=== PATIENT | male | born 1945 | race Caucasian/White ===

== ENCOUNTER 2023-02-22 13:48 | Inpatient (IN) ==
--- NOTE | 2023-02-22 14:10 | Emergency Department Note ---
Impression & Plan Syncope and collapse, A-fib, Bradycardia, Elevated troponin ED Provider Note Provider: Rickey Cordero MD DATE OF SERVICE: 02/22/2023 CHIEF COMPLAINT: Syncope HISTORY OF PRESENT ILLNESS: Patient is a 77-year-old gentleman status post TAVR in November of this year at [facility]. Patient visiting for the football game today from [place]. While at the game began to experience some lightheadedness and then passed out. Next in the crowd and slumped over but did not suffer significant fall. Maybe unconscious for about a minute. Taken to first-aid and then brought here via ambulance for further care. Found to be significantly bradycardic. Patient and report patient has a history of TAVR as well as atrial fibrillation. He states compliance on medications includes metoprolol as well as spironolactone that was increased this past week in addition to IVIS inhibitor and Eliquis. Chronic leg swelling not changed. Denies any chest pain today. States last couple days has had a little bit of dyspnea on exertion. Denies abdominal symptoms or URI symptoms. No history of syncope in the past of significance reported. Again denies pain at this time. Discussion with them patient's not known to have significant bradycardia in the past or arrhythmias beyond A-fib. Patient did not eat yet today. Did take his morning medications this morning including his metoprolol as normal. PAST MEDICAL HISTORY: As noted above MEDICATIONS: Reviewed home medications with at bedside includes small amount of metoprolol SOCIAL HISTORY: , from [place] PHYSICAL EXAM: GENERAL: alert and oriented in no acute distress on stretcher Head: normocephalic and atraumatic EYES: No injection, discharge or icterus. NECK: Trachea midline. ENT: Mucous membranes pink and moist. LUNGS: Airway patent. No retractions. Breath sounds clear HEART: Irregular bradycardic and rhythm. No chest wall tenderness ABDOMEN: Soft and non-tender, without guarding or rebound. SKIN: Acyanotic, warm, dry, without rashes EXTREMITIES: Without tenderness with 1+ edema of the lower extremities with chronic stasis change. NEUROLOGICAL: No focal deficits. No aphasia. No facial droop or slurred speech. EK bpm atrial fibrillation with slow ventricular response. No acute ST segment elevation with some artifact in the lateral leads. Right bundle branch block is noted. CONTINUOUS CARDIAC MONITORING: was ordered and showed a heart rate of 20s-30s bpm in A-fib slow ventricular response Patient's laboratory studies and imaging reviewed. Differential includes Vasovagal event, dehydration, infection, hypoglycemia, electrolyte abnormalities, cardiac sources, intracerebral event, pulmonary embolism, seizure, toxicologic, neurologic, as well as other pathologies. IMPRESSION/MEDICAL DECISION MAKING: Anticoag with Eliquis and low suspicion for PE given this fact. States medication compliance. Denies chest pain. Syncopal episode enough to be significant bradycardic with a heart rate in the 30s. Appears to be A-fib with slow response. No change to his beta-armando but recent increase in spironolactone. Electrolytes thyroid function checked. Troponin sent but less likely to be ACS at this time. Doubt acute aortic valve failure or heart failure as he does not appear to be unstable or in shock. Did not fall and struck his head and doubt acute cranial bleed or CVA. Blood work without significant leukocytosis and borderline anemia. No severe electrolyte abnormalities noted with creatinine 1.4. No LFT abnormalities. Troponin returns somewhat elevated 113. Unclear of exact baseline. Negative COVID testing. TSH within normal limits. Lyme testing negative. Given some gentle IV fluid hydration. Discussed with case management and reached out to [facility] cardiology Dr. Rome he will evaluate the patient in the ER. Magnesium slightly low at 1.6 and ordered repletion. IV repletion ordered of this. 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 Plan to hold his metoprolol. Monitoring closely for any worsening bradycardia or hypotension or signs of decompensation. Patient currently anticoagulated with his Eliquis. DIAGNOSIS: Bradycardia, syncope and collapse, elevated troponin DISPOSITION: Hospitalist will evaluate Patient was agreeable with this plan. Critical Care I have personally spent 35 minutes of critical care time in the direct management of this patient. This includes bedside care, interpretation of diagnostic studies, and testing, discussion with consultants, patient, and family members, and other required patient management activities. These 35 minutes is in excess of all separately billable procedures. Past Med/Surg History Medical History Essential hypertension Dyslipidemia Type 2 diabetes mellitus Aortic stenosis A-fib Surgical History S/P TAVR (transcatheter aortic valve replacement) Social History Smoking Status: Former smoker Feels Safe at Home: Yes Allergies Allergies Allergy/AdvReac Type Severity Reaction Status Date / Time ciprofloxacin [From Cipro] AdvReac Severe GI Verified 02/22/23 16:14 UPSET/SEVERE DIARRHEA Home Meds Home Medications Medication Instructions Recorded Confirmed Lactobacil.acidophilus-Bifido.animalis 1 cap PO DAILY 02/22/23 02/22/23 5 billion cell sprinkle capsule (Probiotic) acetaminophen 500 mg tablet 1,000 mg PO DIRECTED PRN Pain 02/22/23 02/22/23 (Tylenol Extra Strength) amlodipine 5 mg-benazepril 20 mg 1 cap PO DAILY 02/22/23 02/22/23 capsule amoxicillin 500 mg capsule 2,000 mg PO DIRECTED PRN PRIOR 02/22/23 02/22/23 TO DENTAL PROCEDURES apixaban 5 mg tablet (Eliquis) 5 mg PO BID 02/22/23 02/22/23 ascorbic acid (vitamin C) 1,000 mg 1 g PO DAILY 02/22/23 02/22/23 tablet (Vitamin C) atorvastatin 40 mg tablet 40 mg PO DAILY 02/22/23 02/22/23 fuyrbyo-xnrxnjbjo-eiah 333 mg-133 1 tab PO DAILY 02/22/23 02/22/23 mg-5 mg tablet chlorthalidone 25 mg tablet 12.5 mg PO DAILY 02/22/23 02/22/23 mecobalamin-levomefolate 1 tab PO DAILY 02/22/23 02/22/23 calcium-pyridoxal phos 3 mg-35 mg-2 mg tablet metformin 500 mg tablet 1,000 mg PO BIDM 02/22/23 02/22/23 metoprolol succinate 25 mg 12.5 mg PO DAILY 02/22/23 02/22/23 tablet,extended release 24 hr potassium gluconate 595 mg (99 mg) 595 mg PO DAILY 02/22/23 02/22/23 tablet spironolactone 25 mg tablet 25 mg PO QAM 02/22/23 02/22/23 Results & Data (ED) Vital Signs Vital Signs - 24 hr 02/22/23 13:53 02/22/23 13:54 02/22/23 13:54 Temperature Temperature Source Pulse Rate 34 L 36 L Pulse Rate [Apical] Pulse Rate from SpO2 Sensor 36 L Pulse Rhythm Pulse Rhythm [Apical] Pulse Strength Pulse Strength [Apical] Respiratory Rate 12 Respiratory Effort / Characteristics Respiratory Depth Respiratory Pattern Blood Pressure 161/57 H Blood Pressure [Right Arm] Blood Pressure Mean 81 Blood Pressure Mean [Right Arm] Pulse Oximetry 97 Oxygen Delivery Method Sepsis Recent Fever Within 48 Hours Sepsis New/Unexplained Change in Mental Status Sepsis Action Taken by Nursing 02/22/23 13:54 02/22/23 14:00 02/22/23 14:04 Temperature 36.9 C Temperature Source Oral Pulse Rate 33 L 33 L 34 L Pulse Rate [Apical] Pulse Rate from SpO2 Sensor 35 L 33 L Pulse Rhythm Irregular Pulse Rhythm [Apical] Pulse Strength Normal Pulse Strength [Apical] Respiratory Rate 12 9 L 20 Respiratory Effort / Characteristics SOB on Exertion Respiratory Depth Normal Respiratory Pattern Regular Blood Pressure 161/57 H Blood Pressure [Right Arm] Blood Pressure Mean 91 Blood Pressure Mean [Right Arm] Pulse Oximetry 96 93 97 Oxygen Delivery Method Room Air Sepsis Recent Fever Within 48 Hours No Sepsis New/Unexplained Change in Mental Status No Sepsis Action Taken by Nursing No Action Required 02/22/23 14:10 02/22/23 14:19 02/22/23 14:19 Temperature Temperature Source Pulse Rate 35 L 33 L Pulse Rate [Apical] Pulse Rate from SpO2 Sensor 36 L 33 L Pulse Rhythm Pulse Rhythm [Apical] Pulse Strength Pulse Strength [Apical] Respiratory Rate 19 19 Respiratory Effort / Characteristics Respiratory Depth Respiratory Pattern Blood Pressure 157/71 H Blood Pressure [Right Arm] Blood Pressure Mean 114 Blood Pressure Mean [Right Arm] Pulse Oximetry 97 95 Oxygen Delivery Method Sepsis Recent Fever Within 48 Hours Sepsis New/Unexplained Change in Mental Status Sepsis Action Taken by Nursing 02/22/23 14:20 02/22/23 14:20 02/22/23 14:30 Temperature Temperature Source Pulse Rate 35 L 34 L Pulse Rate [Apical] 35 L Pulse Rate from SpO2 Sensor 36 L 36 L Pulse Rhythm Pulse Rhythm [Apical] Irregular Pulse Strength Pulse Strength [Apical] Normal Respiratory Rate 19 16 14 Respiratory Effort / Characteristics SOB on Exertion Respiratory Depth Normal Respiratory Pattern Regular Blood Pressure Blood Pressure [Right Arm] 157/71 H Blood Pressure Mean Blood Pressure Mean [Right Arm] 99 Pulse Oximetry 94 94 96 Oxygen Delivery Method Room Air Sepsis Recent Fever Within 48 Hours Sepsis New/Unexplained Change in Mental Status Sepsis Action Taken by Nursing 02/22/23 14:40 02/22/23 14:50 02/22/23 16:10 Temperature Temperature Source Pulse Rate 37 L 37 L Pulse Rate [Apical] 34 L Pulse Rate from SpO2 Sensor 39 L 36 L Pulse Rhythm Pulse Rhythm [Apical] Irregular Pulse Strength Pulse Strength [Apical] Normal Respiratory Rate 9 L 20 18 Respiratory Effort / Characteristics SOB on Exertion Respiratory Depth Normal Respiratory Pattern Blood Pressure Blood Pressure [Right Arm] 157/72 H Blood Pressure Mean Blood Pressure Mean [Right Arm] 100 Pulse Oximetry 96 96 Oxygen Delivery Method Sepsis Recent Fever Within 48 Hours Sepsis New/Unexplained Change in Mental Status Sepsis Action Taken by Nursing Laboratory Data 02/22/23 14:03 02/22/23 14:41 Lab Results 02/22/23 02/22/23 02/22/23 Range/Units 14:03 14:15 14:41 WBC 8.31 (4.8-10.8) K/ul RBC 4.21 L (4.70-6.10) M/uL Hgb 13.1 L (14.0-18.0) g/dl Hct 39.6 L (42.0-52.0) % MCV 94.1 (80.0-100.0) fL MCH 31.1 (25.0-34.0) pg MCHC 33.1 (32.0-36.0) g/dL RDW Std Deviation 55.4 H (36.4-46.3) fL RDW Coeff of Cassia 17.1 H (11.5-14.5) % Plt Count 170 (130-400) K/uL MPV 12.0 (9.4-12.4) fL Immature Gran % (Auto) 0.4 % Neut % (Auto) 81.2 % Lymph % (Auto) 11.8 % Callaway % (Auto) 6.1 % Eos % (Auto) 0.1 % Baso % (Auto) 0.4 % Neut # (Auto) 6.75 H (1.40-6.50) K/uL Lymph # (Auto) 0.98 L (1.20-3.40) K/uL Callaway # (Auto) 0.51 (0.11-0.59) K/uL Eos # (Auto) 0.01 (0.00-0.50) K/uL Baso # (Auto) 0.03 (0.00-0.20) K/uL Immature Gran # (Auto) 0.03 (0.01-0.20) K/uL PT Cancelled 13.1 H INR Cancelled 1.2 H APTT Cancelled 29.6 PTT Ratio Cancelled 1.0 Sodium Cancelled 139 Potassium Cancelled 4.4 Chloride Cancelled 108 H Carbon Dioxide Cancelled 20 L Anion Gap Cancelled 11 BUN Cancelled 42 H Creatinine Cancelled 1.40 Est Cr Clr Drug Dosing Cancelled 51.5 Est GFR ( Amer) Cancelled 56.6 Est GFR (Non-Af Amer) Cancelled 48.8 BUN/Creatinine Ratio Cancelled 30.0 H Glucose Cancelled 133 H POC Glucose 127 H (70-99) mg/dl Calcium Cancelled 9.8 Magnesium Cancelled 1.6 L Total Bilirubin Cancelled 0.8 AST Cancelled 19 ALT Cancelled 21 Alkaline Phosphatase Cancelled 58 Troponin I High Sens Cancelled 113.1 H* Total Protein Cancelled 7.8 Albumin Cancelled 4.2 Globulin Cancelled 3.6 Albumin/Globulin Ratio Cancelled 1.2 TSH Cancelled 3.057 Lyme Disease IgG Ab Cancelled Negative Lyme Disease IgM Ab Cancelled Negative Administered Medications Heparin Sodium/Dextrose (Heparin Sodium/Dextrose) 25,000 units in 500 mls @ 29 mls/hr IV .[id number] [facility]; Protocol Stop: 03/24/23 17:14 Last Admin: 02/22/23 17:37 Dose: 1,450 units/hr, 29 mls/hr Documented By: KASEY Co-signed By: KERRI Discontinued Medications Heparin Sodium/Dextrose (Heparin Iv Adult Wt-Based Standard *No* Bolus Protocol) 1 each IV ONE STA; Protocol Stop: 02/22/23 16:49 Last Admin: 02/22/23 17:38 Dose: Not Given Documented By: KAESY Magnesium Sulfate/Dextrose (Magnesium Sulfate / D5w) 1 gm in 100 mls @ 100 mls/hr IV Q1H [facility] Stop: 02/22/23 17:59 Last Infusion: 02/22/23 18:32 Dose: Infused Documented By: Admin: 02/22/23 17:26 Dose: 100 mls/hr Documented By: Infusion: 02/22/23 17:09 Dose: Infused Documented By: Admin: 02/22/23 16:05 Dose: 100 mls/hr Documented By: KASEY Sodium Chloride (Nss) 500 mls @ 999 mls/hr IV .Q31M ONE Stop: 02/22/23 17:59 Last Infusion: 02/22/23 18:27 Dose: Infused Documented By: Admin: 02/22/23 17:39 Dose: 999 mls/hr Documented By: KASEY Imaging Data Radiologist's Impression: Chest X-Ray 02/22/23 14:06 XR chest 1V portable CLINICAL HISTORY: Syncope. COMPARISON STUDY: No previous studies for comparison. FINDINGS: No pneumothorax or pleural effusion is present. There is moderate cardiomegaly. A prosthetic aortic valve is in place. There is pulmonary vascular congestion without overt pulmonary edema. No consolidation is identified. IMPRESSION: Cardiomegaly with pulmonary vascular congestion. ACT 112: Negative or not required by law. Electronically signed by: Juancarlos Mcgee M.D. 02/22/2023 2:[address] 02/22/23 16:24 CT OF THE HEAD WITHOUT CONTRAST CLINICAL HISTORY: LOC, on apixaban COMPARISON STUDY: No previous studies for comparison. CT DOSE: 625.8 mGy.cm TECHNIQUE: Helical axial images of the head were obtained without IV contrast. Automated exposure control was utilized for the study. A dose lowering technique was utilized adhering to the principles of ALARA. FINDINGS: No acute intracranial hemorrhage, midline shift or mass effect is present. The ventricular system is unremarkable. The basal cisterns are patent. No extra-axial collections are present. There are no findings to suggest acute dural sinus thrombosis or acute territorial infarct. No significant calvarial abnormalities are present. Visualized portions of the sinuses and mastoid air cells are clear. IMPRESSION: No acute intracranial findings. ACT 112: Negative or not required by law. Electronically signed by: Juancarlos Mcgee M.D. 02/22/2023 5:39 PM Discharge Plan Visit Data Chief Complaint: Bradycardia Stated Complaint: BRADYCARDIA, SYNCOPE ED Provider: Rickey Cordero Discharge Problem: Syncope and collapse, A-fib, Bradycardia, Elevated troponin Patient Disposition: Being Evaluated by Hospitalist Discharge Problem: A-fib Qualifiers: Atrial fibrillation type: persistent (not longstanding) Qualified Code(s): I 48.19 - Other persistent atrial fibrillation
[2023-02-22 14:30] LABS: Basophils # (auto) 0.03 K/uL (0.00-0.20); Basophils % (auto) 0.4 %; Eosinophils # (auto) 0.01 K/uL (0.00-0.50); Eosinophils % (auto) 0.1 %; Hematocrit (blood only) 39.6 % (42.0-52.0); Hemoglobin 13.1 g/dl (14.0-18.0); Immature Granulocytes # (auto) 0.03 K/uL (0.01-0.20); Immature Granulocytes % (auto) 0.4 %; Lymphocytes # (auto) 0.98 K/uL (1.20-3.40); Lymphocytes % (auto) 11.8 %; Mean Corpuscular Hemoglobin 31.1 pg (25.0-34.0); Mean Corpuscular Hgb Conc 33.1 g/dL (32.0-36.0); Mean Corpuscular Volume 94.1 fL (80.0-100.0); Monocytes # (auto) 0.51 K/uL (0.11-0.59); Monocytes % (auto) 6.1 %; Neutrophils # (auto) 6.75 K/uL (1.40-6.50); Neutrophils % (auto) 81.2 %; Platelet Count 170 K/uL (130-400); RDW Coefficient of Variation 17.1 % (11.5-14.5); RDW Standard Deviation 55.4 fL (36.4-46.3); Red Blood Count 4.21 M/uL (4.70-6.10); White Blood Count 8.31 K/ul (4.8-10.8)
--- NOTE | 2023-02-22 14:43 | XRay Report ---
XR chest 1V portable CLINICAL HISTORY: Syncope. COMPARISON STUDY: No previous studies for comparison. FINDINGS: No pneumothorax or pleural effusion is present. There is moderate cardiomegaly. A prostheti c aortic valve is in place. There is pulmonary vascular congestion without overt pulmonary edema. No consolidation is identified. IMPRESSION: Cardiomegaly with pulmonary vascular congestion. ACT 112: Negative or not required by law. Electronically signed by: Juancarlos Mcgee M.D. 02/22/2023 2:42 PM
[2023-02-22 15:09] LABS: Albumin Globulin Ratio 1.2 (0.9-2); Albumin Level 4.2 gm/dl (3.4-5.0); Bilirubin,Total 0.8 mg/dl (0.2-1.0); Calcium 9.8 mg/dl (8.6-10.3); Creatinine Clr Calc Pharmacy 51.5 ml/min; Est GFR (African American) 56.6 ml/min; Est GFR (Non-African American) 48.8 ml/min; Globulin 3.6 gm/dl (2.5-4.0); Potassium 4.4 mmol/L (3.5-5.1); Total Protein 7.8 gm/dl (6.0-8.3)
[2023-02-22 15:21] LABS: INR 1.2 (0.9-1.1); Partial Thromboplastin Time 29.6 Seconds (21.0-31.0); Prothrombin Time 13.1 Seconds (9.0-12.0)
[2023-02-22 15:23] LABS: Troponin I High Sensitivity 113.1 pg/ml (0-20)
[2023-02-22 15:25] LABS: Thyroid Stimulating Hormone 3.057 uIu/ml (0.300-4.500)
[2023-02-22 15:30] LABS: Lyme Ab IgG w/WB Rflx Negative (Negative); Lyme Ab IgM w/WB Rflx Negative (Negative)
[2023-02-22 15:46] LABS: Magnesium 1.6 mg/dl (1.7-2.4)
[2023-02-22] MEDS: MAGNESIUM SULFATE / D5W 1 GM/100 ML BAG IV SCH ×2 (16:05→17:26)
--- NOTE | 2023-02-22 16:27 | History & Physical Report ---
Date of Service February 22, 2023 Assessment & Plan (1) Syncope and collapse: Plan: 77 y/o male with 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 In the ED, found to be markedly bradycardic with rate in the 20s-30s. Pt was found to be hypomag with a Mg of 1.6, which was subsequently replaced. He is on a low- dose beta-armando. Denies any prior syncopal events or bradycardic episodes. Syncopal event like related to bradycardia and/or significant pause. - Admit to PCU, closely monitor overnight - Consult cardiology - input appreciated. Case discussed with Dr. Rome. Pt may need pacemaker placement during admission if rate does not improve with holding beta-armando, Mg repletion - Hold Eliquis in case procedure needed urgently - will start heparin gtt for no w - Check ECHO - Repeat labs in the AM - CBC, BMP, Mg - Repeat troponin pending - EKG in AM - Holding blood pressure meds for now - re-evaluate in the AM (2) Bradycardia: (3) Elevated troponin: (4) A-fib: (5) Type 2 diabetes mellitus: Plan: Diabetic diet Insulin sliding scale, BSG ACHS A1c in AM (6) Dyslipidemia: (7) Essential hypertension: Plan Pt seen and reviewed with collaborating physician, Dr. Martell. Plan of care discussed and as outlined above. Code status: Full code DVT Prophylaxis: heparin gtt Dorina Dumont PA-C History of Present Illness Chief Complaint: Syncope Primary Care Provider: ALEJANDRO ROMAN This is 77 y/o male with 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 Pt is here visiting from [place], [place] for the football game. This morning he felt at baseline when he woke up, took his home meds as usual but didn't eat breakfast. On his way into the game, he became mildly short of breath with the exertion, which is unusual for him. While at the game, he became light-headed and slumped over onto the person in front of him. Family states that he was out for at least a full minute, appear pale and cyanotic but maintained pulse and blood pressure. He spontaneously regainied consciousness and was taken to the first-aid station then transported to the ED. In the ED, he was found to be bradycardic - rate in the ED has ranged from the 20s-30s. At baseline, pt takes metoprolol 12.5 mg daily, but this is not new for him - denies prior history of bradycardia or similar syncopal episodes. Reports his diabetes is usually well-controlled on the Metformin but he does not check his blood sugars at home. His routine A1cs have all been acceptable per pt. Denies chest pain, palpitations, N/V. Prior history of issues with peripheral edema but this has improved. Allergies Allergy/AdvReac Type Severity Reaction Status Date / Time ciprofloxacin [From Cipro] AdvReac Severe GI Verified 02/22/23 16:14 UPSET/SEVERE DIARRHEA Home Medications Medication Instructions Recorded Confirmed Type Lactobacil.acidophilus-Bifido.animalis 1 cap PO DAILY 02/22/23 02/22/23 History 5 billion cell sprinkle capsule (Probiotic) acetaminophen 500 mg tablet 1,000 mg PO DIRECTED PRN Pain 02/22/23 02/22/23 History (Tylenol Extra Strength) amlodipine 5 mg-benazepril 20 mg 1 cap PO DAILY 02/22/23 02/22/23 History capsule amoxicillin 500 mg capsule 2,000 mg PO DIRECTED PRN PRIOR 02/22/23 02/22/23 History TO DENTAL PROCEDURES apixaban 5 mg tablet (Eliquis) 5 mg PO BID 02/22/23 02/22/23 History ascorbic acid (vitamin C) 1,000 mg 1 g PO DAILY 02/22/23 02/22/23 History tablet (Vitamin C) atorvastatin 40 mg tablet 40 mg PO DAILY 02/22/23 02/22/23 History kcibewt-keolfzils-govh 333 mg-133 1 tab PO DAILY 02/22/23 02/22/23 History mg-5 mg tablet chlorthalidone 25 mg tablet 12.5 mg PO DAILY 02/22/23 02/22/23 History mecobalamin-levomefolate 1 tab PO DAILY 02/22/23 02/22/23 History calcium-pyridoxal phos 3 mg-35 mg-2 mg tablet metformin 500 mg tablet 1,000 mg PO BIDM 02/22/23 02/22/23 History metoprolol succinate 25 mg 12.5 mg PO DAILY 02/22/23 02/22/23 History tablet,extended release 24 hr potassium gluconate 595 mg (99 mg) 595 mg PO DAILY 02/22/23 02/22/23 History tablet spironolactone 25 mg tablet 25 mg PO QAM 02/22/23 02/22/23 History Past Med/Surg History Medical History Essential hypertension Dyslipidemia Type 2 diabetes mellitus Aortic stenosis A-fib Surgical History S/P TAVR (transcatheter aortic valve replacement) Social History Smoking Status: Former smoker Feels Safe at Home: Yes Review of Systems Review of Systems: All systems reviewed & are unremarkable except as noted in HPI & below Constitutional: no fever and no chills Eyes: no diplopia Respiratory: no cough and no wheezing Cardiovascular: + lightheadedness and + syncope; no ches t pain and no palpitations Gastrointestinal: no abdominal pain, no nausea and no vomiting Musculoskeletal: no back pain and no neck pain Integumentary: chronic stasis changes in bilateral LE Neurologic: chronic peripheral neuropathy in feet Physical Exam Physical Exam: General: awake, alert, NAD Eyes: no scleral icterus Mouth: moist mucus membranes Neck: trachea midline Heart: bradycardic, irregularly irregular, no murmurs Lungs: CTA bilaterally Abdomen: soft, +BS Extremities: chronic stasis changes bilateral LE, no edema Neuro: moves all extremities, O x 3, no dysarthria or facial droop Results & Data Results & Data Vital Signs (Past 12 Hours) Vital Signs Temp Pulse Pulse Resp BP BP Pulse Ox 02/22/23 16:10 34 L 18 157/72 H 02/22/23 14:50 37 L 20 96 02/22/23 14:40 37 L 9 L 96 02/22/23 14:30 34 L 14 96 02/22/23 14:20 35 L 16 94 02/22/23 14:20 35 L 19 157/71 H 94 02/22/23 14:19 33 L 19 95 02/22/23 14:19 157/71 H 02/22/23 14:10 35 L 19 97 02/22/23 14:04 36.9 C 34 L 20 161/57 H 97 02/22/23 14:00 33 L 9 L 93 02/22/23 13:54 33 L 12 96 02/22/23 13:54 161/57 H 02/22/23 13:54 36 L 02/22/23 13:53 34 L 12 97 O2 Del Method 02/22/23 16:10 02/22/23 14:50 02/22/23 14:40 02/22/23 14:30 02/22/23 14:20 02/22/23 14:20 Room Air 02/22/23 14:19 02/22/23 14:19 02/22/23 14:10 02/22/23 14:04 Room Air 02/22/23 14:00 02/22/23 13:54 02/22/23 13:54 02/22/23 13:54 02/22/23 13:53 Laboratory Results Laboratory Results - last 24 hr 02/22/23 02/22/23 02/22/23 14:03 14:15 14:41 WBC 8.31 RBC 4.21 L Hgb 13.1 L Hct 39.6 L MCV 94.1 MCH 31.1 MCHC 33.1 RDW Std Deviation 55.4 H RDW Coeff of Cassia 17.1 H Plt Count 170 MPV 12.0 Immature Gran % (Auto) 0.4 Neut % (Auto) 81.2 Lymph % (Auto) 11.8 [place] % (Auto) 6.1 Eos % (Auto) 0.1 Baso % (Auto) 0.4 Neut # (Auto) 6.75 H Lymph # (Auto) 0.98 L [place] # (Auto) 0.51 Eos # (Auto) 0.01 Baso # (Auto) 0.03 Immature Gran # (Auto) 0.03 PT Cancelled 13.1 H INR Cancelled 1.2 H APTT Cancelled 29.6 PTT Ratio Cancelled 1.0 Sodium Cancelled 139 Potassium Cancelled 4.4 Chloride Cancelled 108 H Carbon Dioxide Cancelled 20 L Anion Gap Cancelled 11 BUN Cancelled 42 H Creatinine Cancelled 1.40 Est Cr Clr Drug Dosing Cancelled 51.5 Est GFR ( Amer) Cancelled 56.6 Est GFR (Non-Af Amer) Cancelled 48.8 BUN/Creatinine Ratio Cancelled 30.0 H Glucose Cancelled 133 H POC Glucose 127 H Calcium Cancelled 9.8 Magnesium Cancelled 1.6 L Total Bilirubin Cancelled 0.8 AST Cancelled 19 ALT Cancelled 21 Alkaline Phosphatase Cancelled 58 Troponin I High Sens Cancelled 113.1 H* Total Protein Cancelled 7.8 Albumin Cancelled 4.2 Globulin Cancelled 3.6 Albumin/Globulin Ratio Cancelled 1.2 TSH Cancelled 3.057 Lyme Disease IgG Ab Cancelled Negative Lyme Disease IgM Ab Cancelled Negative SARS-CoV-2, RNA, NAAT 02/22/23 Unknown WBC RBC Hgb Hct MCV MCH MCHC RDW Std Deviation RDW Coeff of Cassia Plt Count MPV Immature Gran % (Auto) Neut % (Auto) Lymph % (Auto) [place] % (Auto) Eos % (Auto) Baso % (Auto) Neut # (Auto) Lymph # (Auto) [place] # (Auto) Eos # (Auto) Baso # (Auto) Immature Gran # (Auto) PT INR APTT PTT Ratio Sodium Potassium Chloride Carbon Dioxide Anion Gap BUN Creatinine Est Cr Clr Drug Dosing Est GFR ( Amer) Est GFR (Non-Af Amer) BUN/Creatinine Ratio Glucose POC Glucose Calcium Magnesium Total Bilirubin AST ALT Alkaline Phosphatase Troponin I High Sens Total Protein Albumin Globulin Albumin/Globulin Ratio TSH Lyme Disease IgG Ab Lyme Disease IgM Ab SARS-CoV-2, RNA, NAAT NEGATIVE Diagnostic Findings Chest X-Ray 02/22/23 14:06 XR chest 1V portable CLINICAL HISTORY: Syncope. COMPARISON STUDY: No previous studies for comparison. FINDINGS: No pneumothorax or pleural effusion is present. There is moderate cardiomegaly. A prosthetic aortic valve is in place. There is pulmonary vascular congestion without overt pulmonary edema. No consolidation is identified. IMPRESSION: Cardiomegaly with pulmonary vascular congestion. ACT 112: Negative or not required by law. Electronically signed by: Juancarlos Mcgee M.D. 02/22/2023 2:42 PM Medications Administered Magnesium Sulfate/Dextrose (Magnesium Sulfate / D5w) 1 gm in 100 mls @ 100 mls/hr IV Q1H MARY Stop: 02/22/23 17:59 Last Admin: 02/22/23 16:05 Dose: 100 mls/hr Documented By: GGG Supervising Physician Co-Signing Physician Notes I have seen and examined the patient and have discussed the case with the provider above. I agree with the assessment and plan as stated. 77 yo M on metoprolol succinate presented with syncope likely 2/2 symptomatic bradycardia while at a football game. He is on apixaban and reportedly did not hit his head or fall but instead slumped onto the person next to him. LOC lasted approximately for 1 minute per family who witnessed the event. The patient currently has a heart rate in the 30s with EKG revealing afib. Recent TAVR in November. On exam, he is WNWD and in NAD. He is mentating clearly and is alert saying "I feel great!" Cardiac exam reveals S1/2 heard without murmurs, gallops or rubs. Luc rate and regular rhythm heard with 2+ radial pulse bilaterally. Extremities are warm and well perfused. He has venous stasis changes in his legs bilaterally wtih a dark purple hue to distal lower extremities. Lungs are CTA throughout. Normal respiratory effort. Abdomen soft, NTND. Labs/meds/imaging reviewed. Elevated troponin of 113 to 130. No evidence clinically or on objective testing that ACS was present. Echo ordered for am. Apixaban was converted to heparin in case of need for procedure. He was transferred to PCU for continuous telemetry monitoring overnight. Dr. Rome will be in contact with his primary skylights assembler as needed. For now, cont holding BB and monitor clinical response. Also, pt is a dibateic and was advised on the use of insulin in lieu of metformin while in the hospital. He verbalized understanding. A1C in am. DO Jasbir (4) A-fib Atrial fibrillation type: persistent (not longstanding) Qualified Code(s): I48.19 - Other persistent atrial fibrillation (5) Type 2 diabetes mellitus Diabetes mellitus complication detail: with unspecified neuropathy Diabetes mellitus complication status: with neurologic complications Diabetes mellitus terminal gauger insulin use: without terminal gauger use Qualified Code(s): E11.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
[2023-02-22] MEDS ORDERED: Heparin IV Adult Wt-Based Standard *NO* Bolus Protocol IV STA (16:48)
--- NOTE | 2023-02-22 17:07 | Cardiology Consultation ---
Date of Consultation February 22, 2023 Assessment & Plan (1) Syncope and collapse: (2) Bradycardia: (3) A-fib: Plan -Patient describes a longstanding history of persistent atrial fibrillation. Home medications include metoprolol succinate 12.5 mg daily and Eliquis 5 mg twice daily. This is his first syncopal episode. He denies any preceding recent symptoms to suggest angina. -He has a history of TAVR that took place in November, and reportedly coronary angiography that was performed in advance of this procedure revealed no obstructive CAD and has no history of coronary stents. -I have counseled the patient that his metoprolol is going to be held as well as his other antihypertensives, chlorthalidone, amlodipine, benazepril. -I have concerns that given his presenting heart rate that has been persistently in the 30s, and atrial fibrillation for the last 4 hours, that even after the metoprolol washes out he still may need to have a permanent pacemaker. -A transthoracic echocardiogram has been requested and will be performed tomorrow. -In anticipation of possible pacemaker, his Eliquis, the next dose of which would be due at 1800 this evening as per his usual home schedule is going to be held with plans to proceed with a heparin bridge (adult weight-based protocol without bolus). -The patient is hemodynamically stable, and I do not think he needs a temporary transvenous pacemaker at present. Case discussed with Dr Cordero of emergency medicine by telephone and with Rafa Dumont PA-C who is seeing the patient along with Dr Martell for the admitting hospitalist service. Patient to be admitted to the telemetry unit. The patient's primary hull molder is Dr. Izabel Vasquez. Dr Cordero has already spoken to him on the phone earlier today. I counseled the patient that I would be happy to update him as the hospital stay develops. History of Present Illness History of Present Illness Jose Angel Fitzgerald is a 77-year-old male seen in cardiology consultation per the request of Dr Cordero for the evaluation of the syncope and bradycardia. The patient is assessed in the emergency room, [address] He is accompanied by his spouse, Radha. The patient resides in [place], [place] and was in town for the football game today. He took his medications as per his usual routine this morning and did not eat breakfast and states he did not have much to drink. He was sitting in the stadium and was witnessed to have a collapse event with uri loss of consciousness and loss of postural tone that lasted about a minute. A family friend that accompanies him is an anesthesiologist and states that his appearance was poor and she was concerned at first that he had suffered a cardiac arrest, then he spontaneously regained consciousness. He was pale when he was taken to the EMS center within the stadium. Subsequently he was transferred to the emergency department. Since his initial vital signs were taken 4 hours ago, he has been noted to have atrial fibrillation with slow ventricular response in the 30s. During my interview with him, he had a brief heart rate that was as high as 40 bpm. He is feeling well at the time of my assessment and his most recent blood pressure reading was 157/72. He feels fine at present with no complaints. Past Medical History: History of transcatheter aortic valve implantation which took place at the [facility] in November, Hypertension Dyslipidemia Persistent atrial fibrillation Social History: , lives with spouse who is at the bedside Allergies Allergy/AdvReac Type Severity Reaction Status Date / Time ciprofloxacin [From Cipro] AdvReac Severe GI Verified 02/22/23 16:14 UPSET/SEVERE DIARRHEA Home Medications Medication Instructions Recorded Confirmed Type Lactobacil.acidophilus-Bifido.animalis 1 cap PO DAILY 02/22/23 02/22/23 History 5 billion cell sprinkle capsule (Probiotic) acetaminophen 500 mg tablet 1,000 mg PO DIRECTED PRN Pain 02/22/23 02/22/23 History (Tylenol Extra Strength) amlodipine 5 mg-benazepril 20 mg 1 cap PO DAILY 02/22/23 02/22/23 History capsule amoxicillin 500 mg capsule 2,000 mg PO DIRECTED PRN PRIOR 02/22/23 02/22/23 History TO DENTAL PROCEDURES apixaban 5 mg tablet (Eliquis) 5 mg PO BID 02/22/23 02/22/23 History ascorbic acid (vitamin C) 1,000 mg 1 g PO DAILY 02/22/23 02/22/23 History tablet (Vitamin C) atorvastatin 40 mg tablet 40 mg PO DAILY 02/22/23 02/22/23 History uwuafae-bmjnqwcbr-hskf 333 mg-133 1 tab PO DAILY 02/22/23 02/22/23 History mg-5 mg tablet chlorthalidone 25 mg tablet 12.5 mg PO DAILY 02/22/23 02/22/23 History mecobalamin-levomefolate 1 tab PO DAILY 02/22/23 02/22/23 History calcium-pyridoxal phos 3 mg-35 mg-2 mg tablet metformin 500 mg tablet 1,000 mg PO BIDM 02/22/23 02/22/23 History metoprolol succinate 25 mg 12.5 mg PO DAILY 02/22/23 02/22/23 History tablet,extended release 24 hr potassium gluconate 595 mg (99 mg) 595 mg PO DAILY 02/22/23 02/22/23 History tablet spironolactone 25 mg tablet 25 mg PO QAM 02/22/23 02/22/23 History Patient History Medical History Essential hypertension Dyslipidemia Type 2 diabetes mellitus Aortic stenosis A-fib Surgical History S/P TAVR (transcatheter aortic valve replacement) Social History Smoking Status: Former smoker Feels Safe at Home: Yes Review of Systems Review of Systems: All systems reviewed & are unremarkable except as noted in HPI & below Physical Exam Constitutional: WD/WN, vitals as above Eyes: PERRL, conjunctivae normal, anicteric sclerae Respiratory: normal respiratory effort, lungs clear to auscultation Cardiovascular: Rate/Rhythm: + bradycardic and + irregularly irregular Heart Sounds: no murmur Vessels: no JVD Extremities: no edema (Chronic lower extremity venous stasis changes noted) Gastrointestinal (Abdomen): normal bowel sounds, soft, nontender, no hepatosplenomegaly Neurologic: PERRL, EOMI, accommodation nl, no face palsy, no dysarthria Results & Data Vital Signs (Past 12 Hours) Vital Signs Temp Pulse Pulse Resp BP BP Pulse Ox 02/22/23 16:10 34 L 18 157/72 H 02/22/23 14:50 37 L 20 96 02/22/23 14:40 37 L 9 L 96 02/22/23 14:30 34 L 14 96 02/22/23 14:20 35 L 16 94 02/22/23 14:20 35 L 19 157/71 H 94 02/22/23 14:19 33 L 19 95 02/22/23 14:19 157/71 H 02/22/23 14:10 35 L 19 97 02/22/23 14:04 36.9 C 34 L 20 161/57 H 97 02/22/23 14:00 33 L 9 L 93 02/22/23 13:54 33 L 12 96 02/22/23 13:54 161/57 H 02/22/23 13:54 36 L 02/22/23 13:53 34 L 12 97 O2 Del Method 02/22/23 16:10 02/22/23 14:50 02/22/23 14:40 02/22/23 14:30 02/22/23 14:20 02/22/23 14:20 Room Air 02/22/23 14:19 02/22/23 14:19 02/22/23 14:10 02/22/23 14:04 Room Air 02/22/23 14:00 02/22/23 13:54 02/22/23 13:54 02/22/23 13:54 02/22/23 13:53 Laboratory Results Cardiac Enzymes 02/22/23 02/22/23 Range/Units 14:03 14:41 AST Cancelled 19 Troponin I High Sens Cancelled 113.1 H* Coagulation 02/22/23 02/22/23 Range/Units 14:03 14:41 PT Cancelled 13.1 H APTT Cancelled 29.6 CBC 02/22/23 Range/Units 14:03 WBC 8.31 (4.8-10.8) K/ul RBC 4.21 L (4.70-6.10) M/uL Hgb 13.1 L (14.0-18.0) g/dl Hct 39.6 L (42.0-52.0) % Plt Count 170 (130-400) K/uL Neut # (Auto) 6.75 H (1.40-6.50) K/uL Lymph # (Auto) 0.98 L (1.20-3.40) K/uL [place] # (Auto) 0.51 (0.11-0.59) K/uL Eos # (Auto) 0.01 (0.00-0.50) K/uL Baso # (Auto) 0.03 (0.00-0.20) K/uL Comprehensive Metabolic Panel 02/22/23 02/22/23 Range/Units 14:03 14:41 Sodium Cancelled 139 Potassium Cancelled 4.4 Chloride Cancelled 108 H Carbon Dioxide Cancelled 20 L BUN Cancelled 42 H Creatinine Cancelled 1.40 Glucose Cancelled 133 H Calcium Cancelled 9.8 AST Cancelled 19 ALT Cancelled 21 Alkaline Phosphatase Cancelled 58 Total Protein Cancelled 7.8 Albumin Cancelled 4.2 Intake and Output 02/22/23 02/22/23 02/22/23 06:59 14:59 22:59 Other: Weight 90 kg Weight Measurement Method Built in [facility] Patient Weight 02/23/23 06:59 Weight 90 kg Magnesium level 1.6 mg/dL Diagnostic Findings EKG performed on presentation at 1400 revealed idioventricular rhythm at 35 bpm T wave inversion noted in leads I and aVL (3) A-fib Atrial fibrillation type: persistent (not longstanding) Qualified Code(s): I48.19 - Other persistent atrial fibrillation
[2023-02-22] MEDS ORDERED: SODIUM CHLORIDE 0.9% 500 ML IV ONE (17:29)
[2023-02-22] MEDS: HEPARIN SODIUM/DEXTROSE 25,000 UNITS/500 ML BAG IV SCH (17:37)
--- NOTE | 2023-02-22 17:40 | CT Scan Report ---
CT OF THE HEAD WITHOUT CONTRAST CLINICAL HISTORY: LOC, on apixaban COMPARISON STUDY: No previous studies for comparison. CT DOSE: 625.8 mGy.cm TECHNIQUE: Helical axial images of the head were obtained without IV contrast. Automated exposure con trol was utilized for the study. A dose lowering technique was utilized adhering to the principles o f ALARA. FINDINGS: No acute intracranial hemorrhage, midline shift or mass effect is present. The ventricular system is unremarkable. The basal cisterns are patent. No extra-axial collections are present. There are no findings to suggest acute dural sinus thrombosis or acute territorial infarct. No significant calvarial abnormalities are present. Visualized portions of the sinuses and mastoid air cells are jer ar. IMPRESSION: No acute intracranial findings. ACT 112: Negative or not required by law. Electronically signed by: Juancarlos Mcgee M.D. 02/22/2023 5:39 PM
[2023-02-22] MEDS ORDERED: GLUCOSE 10 TAB/TUBE PO PRN (19:24)
[2023-02-22] MEDS ORDERED: CARBOHYDRATES FOR HYPOGLYCEMIA PO PRN (19:24)
[2023-02-22] MEDS ORDERED: GLUCAGON FOR INJ 1 MG VIAL SQ PRN (19:24)
[2023-02-22] MEDS ORDERED: DEXTROSE 50% 50 ML SYRINGE IV PRN (19:24)
[2023-02-22] MEDS ORDERED: GLUCOSE 40% GEL 15 GM TUBE PO PRN (19:24)
[2023-02-22] MEDS: INSULIN ASPART PER UNIT CHARGE SC SCH (20:55)
[2023-02-22] MEDS: LANTUS PER UNIT CHARGE SQ SCH (20:55)
[2023-02-23 00:36] LABS: Partial Thromboplastin Ratio 2.7
[2023-02-23 00:47] LABS: Partial Thromboplastin Time 75.9 Seconds (21.0-31.0)
[2023-02-23 08:01] LABS: Hematocrit (blood only) 35.6 % (42.0-52.0); Mean Corpuscular Hgb Conc 33.7 g/dL (32.0-36.0); Mean Platelet Volume 10.3 fL (9.4-12.4); Platelet Count 159 K/uL (130-400); RDW Coefficient of Variation 16.1 % (11.5-14.5); RDW Standard Deviation 53.6 fL (36.4-46.3); Red Blood Count 3.87 M/uL (4.70-6.10); White Blood Count 6.87 K/ul (4.8-10.8)
[2023-02-23] MEDS: ATORVASTATIN 40 MG TAB PO SCH (08:32)
[2023-02-23] MEDS: INSULIN ASPART PER UNIT CHARGE SC SCH ×4 (08:32→21:30)
[2023-02-23 08:33] LABS: Calcium 9.6 mg/dl (8.6-10.3); Magnesium 1.9 mg/dl (1.7-2.4); Potassium 4.1 mmol/L (3.5-5.1)
[2023-02-23 08:39] LABS: BUN Creatinine Ratio 25.2 (10-20); Creatinine Clr Calc Pharmacy 67.2 ml/min; Est GFR (African American) 74.9 ml/min; Est GFR (Non-African American) 64.6 ml/min
[2023-02-23 08:44] LABS: Partial Thromboplastin Ratio 3.3
[2023-02-23 08:46] LABS: Partial Thromboplastin Time 92.7 Seconds (21.0-31.0)
--- NOTE | 2023-02-23 09:55 | Cardiology Progress Note ---
Date of Service February 23, 2023 Assessment & Plan (1) Syncope and collapse: (2) Bradycardia: (3) A-fib: Plan -Patient hemodynamically stable, with systolic blood pressures persistently in the 150s. His antihypertensives are on hold including metoprolol succinate 12.5 mg daily, chlorthalidone, and amlodipine/benazepril. -I recommended patient remains in the hospital for permanent pacemaker implantation to tentatively be performed tomorrow, 02/24/2023. The taylor ent was initially hesitant as he had preferred to follow-up with his primary cardiology team in [place], but he was actually able to call his primary pharmaceutical detailer, Dr. Vasquez , on the phone and Dr. Vasquez provided the same advice that is I did that would be safest for the patient to remain in the hospital and have the procedure performed here. -Echocardiogram performed today reveals normal LV systolic function, ejection fraction in the range of 55 to 60%. The gradients across the aortic valve prosthesis are normal. Mild periprosthetic regurgitation present. The pulm artery systolic pressure is moderately elevated at 63 mmHg. I was able to review the report of the patient's post TAVR echocardiogram performed 12/12/2022 the portal application. The estimated pulmonary pressures at that time were in the mid 30s. Otherwise the measurements appear similar. I counseled the patient that I do not think this change in pulmonary pressures necessarily connected to his bradycardia but would need to be followed in the future. -The patient and spouse provide the history that he is in atrial fibrillation all the time. Therefore we will proceed with a single-chamber permanent pacemaker. We will make patient n.p.o. after midnight, with plans for device tomorrow. He is currently on a heparin bridge and heparin will be held at 4 AM with plans to resume Eliquis post procedure. Case discussed with Dr Posada of the hospitalist service for the purpose of coordination of care. Admission and Anticipated Discharge Date Admission Date: February 22, 2023 Subjective Patient seen in follow up. His spouse, Radha, is at the bedside. Patient feels well. No recurrent symptoms overnight. Atrial fibrillation and junctional rhythm with rates for the most part in the mid 30s present on telemetry overnight and thus far this am. Physical Exam Constitutional: WD/WN, vitals as above Eyes: PERRL, conjunctivae normal, anicteric sclerae Respiratory: normal respiratory effort, lungs clear to auscultation Cardiovascular: Rate/Rhythm: + bradycardic and + irregularly irregular Heart Sounds: no murmur Vessels: no JVD Extremities: no edema (Chronic lower extremity venous stasis changes noted) Gastrointestinal (Abdomen): normal bowel sounds, soft, nontender, no hepatosplenomegaly Neurologic: PERRL, EOMI, accommodation nl, no face palsy, no dysarthria Results & Data Vital Signs (Past 12 Hours) Vital Signs Temp Pulse Pulse Resp BP Pulse Ox O2 Del Method 02/23/23 08:51 36.4 C L 41 L 16 151/89 H 94 Room Air 02/23/23 08:00 33 L 02/23/23 04:11 34 L 02/23/23 03:00 36.5 C 38 L 16 148/92 H 98 Room Air 02/22/23 23:00 36.5 C 34 L 16 181/87 H 97 Room Air (3) A-fib Atrial fibrillation type: persistent (not longstanding) Qualified Code(s): I48.19 - Other persistent atrial fibrillation
[2023-02-23] MEDS: HEPARIN SODIUM/DEXTROSE 25,000 UNITS/500 ML BAG IV SCH ×2 (11:43→16:32)
--- NOTE | 2023-02-23 12:10 | Communication Note ---
Date of Service: February 23, 2023 SBP up to 180 mm Hg. Will resume ACEI. He takes benazepril at home which is not on formulary. Start lisinopril 10 mg for now. Resume spironolactone May need to add back amlodipine next. Hold metoprolol , chlorthalidone.
[2023-02-23] MEDS: SPIRONOLACTONE 25 MG TAB PO SCH (12:49)
[2023-02-23] MEDS: lisinopril 10 MG TAB PO SCH (12:50)
--- NOTE | 2023-02-23 14:15 | Hospitalist Progress Note ---
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 In the ED, found to be markedly bradycardic with rate in the 20s-30s. Pt was found to be hypomag with a Mg of 1.6, which was subsequently replaced. He is on a low- dose beta-armando. Denies any prior syncopal events or bradycardic episodes. Syncopal event like related to bradycardia and/or significant pause. - Admitted to PCU - Consult cardiology - input appreciated. Case discussed with Dr. Rome. Pt may need pacemaker placement during admission if rate does not improve with holding beta-armando, Mg repletion - Hold Eliquis in case procedure needed urgently - will start heparin gtt for now -Appreciate cardiology input and recommendation for permanent pacemaker placement tomorrow -His primary manufacturing planner Dr. Vasquez was communicated by Dr. Davis -Echo of the heart showed-normal LV systolic function, EF 55 to 60%, gradients at across the aortic valve prosthesis are normal, mild periprosthetic regurgitation, pulm artery systolic pressure is moderately elevated at 63 mmHg. -His heart rate is running around lower 40 without any symptoms at rest -Electrolytes replaced -Has been on heparin and plan to do pacemaker implantation tomorrow -Discussed with the family members (2) Bradycardia: Plan: As above (3) Elevated troponin: Plan: Mildly elevated troponin secondary to a strain Doubt any ACS (4) A-fib: Plan: History of A-fib on Eliquis Having bradycardia with symptoms He is 4 pacemaker placement likely tomorrow (5) Type 2 diabetes mellitus: Plan: Diabetic diet Insulin sliding scale, BSG ACHS A1c in AM-pending for now (6) Dyslipidemia: Plan: Continue statin (7) Essential hypertension: Plan Code status: Full code DVT Prophylaxis: heparin gtt Admission and Anticipated Discharge Date Admission Date: February 22, 2023 Subjective 02/23/2023 The patient was seen and examined in telemetry unit He does not have any symptoms but presented with syncope and collapse No chest pain or palpitation or shortness of breath at rest Heart rate remains around 40s Review of Systems Review of Systems: All systems reviewed and are unremarkable except as noted below Physical Exam Physical Exam: Sitting at the edge of the bed without any acute distress Constitutional: well developed, well nourished and + obese; not ill appearing Eyes: PERRL, conjunctivae normal, anicteric sclerae ENMT: external ear and nose normal, oropharynx normal Neck: trachea midline, no thyromegaly Respiratory: no respiratory distress Auscultation: + diminished lung sounds and + crackles (Minimal crackles at the bases) Cardiovascular: Rate/Rhythm: regular rate, regular rhythm and + bradycardic Heart Sounds: normal S1 and normal S2; no murmur Extremities: + edema (Trace edema bilaterally) Gastrointestinal (Abdomen): Inspection/Auscultation: normal bowel sounds; abdomen not distended Percussion/Palpation: abdomen soft; abdomen nontender Musculoskeletal: No acute arthritis involving any of the joint Neurologic: normal touch/pain/proprioception and moves all extremities; not confused Psychiatric: A+Ox3, euthymic affect Lymphatic: no cervical or axillary lymphadenopathy Results & Data Results & Data Vital Signs (Past 12 Hours) Vital Signs Temp Pulse Pulse Resp BP Pulse Ox O2 Del Method 02/23/23 11:41 36.5 C 39 L 20 165/74 H 97 Room Air 02/23/23 08:51 36.4 C L 41 L 16 151/89 H 94 Room Air 02/23/23 08:00 33 L 02/23/23 04:11 34 L 02/23/23 03:00 36.5 C 38 L 16 148/92 H 98 Room Air Laboratory Results Short CBC 02/22/23 02/23/23 Range/Units 14:03 07:33 WBC 8.31 6.87 (4.8-10.8) K/ul Hgb 13.1 L 12.0 L (14.0-18.0) g/dl Hct 39.6 L 35.6 L (42.0-52.0) % Plt Count 170 159 (130-400) K/uL BMP 02/22/23 02/22/23 02/23/23 14:03 14:41 07:33 Sodium Cancelled 139 140 Potassium Cancelled 4.4 4.1 Chloride Cancelled 108 H 105 Carbon Dioxide Cancelled 20 L 26 BUN Cancelled 42 H 28 H Creatinine Cancelled 1.40 1.11 Glucose Cancelled 133 H 149 H Calcium Cancelled 9.8 9.6 Liver Function 02/22/23 02/22/23 Range/Units 14:03 14:41 Total Bilirubin Cancelled 0.8 AST Cancelled 19 ALT Cancelled 21 Alkaline Phosphatase Cancelled 58 Albumin Cancelled 4.2 Medications Administered Current Inpatient Medications Acetaminophen (Acetaminophen 325 Mg Tab) 650 mg PO Q4H PRN PRN Reason: Pain or Fever Stop: 03/24/23 19:23 Atorvastatin Calcium (Atorvastatin 40 Mg Tab) 40 mg PO DAILY [facility] Stop: 03/25/23 08:59 Last Admin: 02/23/23 08:32 Dose: 40 mg Dextrose (Dextrose 50% 50 Ml Syringe) 25 - 50 ml IV UD PRN; Protocol PRN Reason: Hypoglycemia Protocol Stop: 03/24/23 19:23 Glucagon (Glucagon For Inj 1 Mg Vial) 1 mg SQ UD PRN; Protocol PRN Reason: Hypoglycemia Protocol Stop: 03/24/23 19:23 Glucose (Glucose 10 Tab/Tube) 4 - 8 tab PO UD PRN; Protocol PRN Reason: Hypoglycemia Treatment Stop: 03/24/23 19:23 Glucose (Glucose 40% Gel 15 Gm Tube) 15 - 30 gm PO UD PRN; Protocol PRN Reason: Hypoglycemia Protocol Stop: 03/24/23 19:23 Heparin Sodium/Dextrose (Heparin Sodium/Dextrose) 25,000 units in 500 mls @ 24 mls/hr IV .[id number] [facility]; Protocol Stop: 03/24/23 17:14 Last Admin: 02/23/23 11:43 Dose: 1,200 units/hr, 24 mls/hr Insulin Aspart (Insulin Aspart Per Unit Charge) 0 units SC ACHS [facility] Stop: 03/24/23 20:59 Last Admin: 02/23/23 11:59 Dose: Not Given Insulin Glargine (Lantus Per Unit Charge) 10 units SQ HS [facility] Stop: 03/24/23 20:59 Last Admin: 02/22/23 20:55 Dose: Not Given Lisinopril (Lisinopril 10 Mg Tab) 10 mg PO QAM [facility] Stop: 03/25/23 12:14 Last Admin: 02/23/23 12:50 Dose: 10 mg Miscellaneous (Carbohydrates For Hypoglycemia ) 15 - 30 gm PO UD PRN PRN Reason: Hypoglycemia Protocol Stop: 03/24/23 19:23 Miscellaneous (Hold Heparin Order) 1 each N/A ONE ONE Stop: 02/24/23 04:01 Spironolactone (Spironolactone 25 Mg Tab) [facility] [place]: 03/25/23 12:14 Last Admin: 02/23/23 12:49 Dose: 25 mg (4) A-fib Atrial fibrillation type: persistent (not longstanding) Qualified Code(s): I48.19 - Other persistent atrial fibrillation (5) Type 2 diabetes mellitus Diabetes mellitus [facility] insulin use: without terminal superintendent use Diabetes mellitus complication status: with neurologic complications Diabetes mellitus complication detail: with unspecified neuropathy Qualified Code(s): E11.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
[2023-02-23 15:37] LABS: Partial Thromboplastin Ratio 2.7
[2023-02-23 15:40] LABS: Partial Thromboplastin Time 75.4 Seconds (21.0-31.0)
--- NOTE | 2023-02-23 20:07 | Electrocardiogram Report ---
Test Reason : Blood Pressure : / mmHG Vent. Rate : 035 BPM Atrial Rate : 000 BPM P-R Int : 000 ms QRS Dur : 132 ms QT Int : 626 ms P-R-T Axes : 000 -30 110 degrees QTc Int : 477 ms Poor data quality, interpretation may be adversely affected Atrial fibrillation with slow ventricular response Left axis deviation Right bundle branch block Minimal voltage criteria for LVH, may be normal variant ( R in aVL ) T wave abnormality, consider lateral ischemia Abnormal ECG No previous ECGs available Confirmed by Miguel Santiago ([id number]) on 02/23/2023 8:07:03 PM Referred By: Confirmed By:Miguel Santiago
[2023-02-23] MEDS: LANTUS PER UNIT CHARGE SQ SCH (21:30)
[2023-02-24 00:23] LABS: Partial Thromboplastin Ratio 2.3
[2023-02-24 00:24] LABS: Partial Thromboplastin Time 63.5 Seconds (21.0-31.0)
[2023-02-24] MEDS ORDERED: HOLD HEPARIN ORDER ONE (04:00)
[2023-02-24] MEDS: HEPARIN SODIUM/DEXTROSE 25,000 UNITS/500 ML BAG IV SCH (04:20)
--- NOTE | 2023-02-24 06:05 | Electrocardiogram Report ---
Test Reason : Blood Pressure : / mmHG Vent. Rate : 036 BPM Atrial Rate : 312 BPM P-R Int : 000 ms QRS Dur : 142 ms QT Int : 634 ms P-R-T Axes : 000 -38 155 degrees QTc Int : 490 ms Atrial fibrillation with slow ventricular response Left axis deviation Right bundle branch block Moderate voltage criteria for LVH, may be normal variant T wave abnormality, consider inferolateral ischemia Abnormal ECG When compared with ECG of 22-FEB-2023 14:00, (unconfirmed) No significant change Confirmed by Miguel Santiago ([id number]) on 02/24/2023 6:05:15 AM Referred By: REFERRED SELF Confirmed By:Miguel Santiago
[2023-02-24 06:48] LABS: Basophils # (auto) 0.05 K/uL (0.00-0.20); Basophils % (auto) 0.8 %; Eosinophils % (auto) 1.7 %; Hematocrit (blood only) 38.8 % (42.0-52.0); Hemoglobin 12.9 g/dl (14.0-18.0); Immature Granulocytes # (auto) 0.01 K/uL (0.01-0.20); Immature Granulocytes % (auto) 0.2 %; Lymphocytes # (auto) 1.46 K/uL (1.20-3.40); Lymphocytes % (auto) 24.3 %; Mean Corpuscular Hemoglobin 31.1 pg (25.0-34.0); Mean Corpuscular Hgb Conc 33.2 g/dL (32.0-36.0); Mean Corpuscular Volume 93.5 fL (80.0-100.0); Mean Platelet Volume 10.3 fL (9.4-12.4); Monocytes # (auto) 0.61 K/uL (0.11-0.59); Monocytes % (auto) 10.1 %; Neutrophils # (auto) 3.79 K/uL (1.40-6.50); Neutrophils % (auto) 62.9 %; Platelet Count 175 K/uL (130-400); RDW Coefficient of Variation 15.7 % (11.5-14.5); RDW Standard Deviation 53.5 fL (36.4-46.3); Red Blood Count 4.15 M/uL (4.70-6.10); White Blood Count 6.02 K/ul (4.8-10.8)
[2023-02-24 06:57] LABS: BUN Creatinine Ratio 19.8 (10-20); Calcium 8.9 mg/dl (8.6-10.3); Creatinine Clr Calc Pharmacy 56.9 ml/min; Est GFR (African American) 61.3 ml/min; Est GFR (Non-African American) 52.9 ml/min; Magnesium 1.7 mg/dl (1.7-2.4); Potassium 3.8 mmol/L (3.5-5.1)
[2023-02-24] MEDS: INSULIN ASPART PER UNIT CHARGE SC SCH ×4 (07:37→20:58)
[2023-02-24] MEDS ORDERED: LIDOCAINE 1% LOCAL 20 ML VIAL ONE (07:38)
[2023-02-24] MEDS ORDERED: BUPIVACAINE 0.25% PF 30 ML VIAL ONE (07:40)
[2023-02-24] MEDS ORDERED: WATER, STERILE FOR INJ 10 ML VIAL ONE (07:40)
[2023-02-24] MEDS ORDERED: VANCOMYCIN HCL 1000MG/20ML VIAL ONE (07:40)
[2023-02-24] MEDS: SPIRONOLACTONE 25 MG TAB PO SCH (08:03)
[2023-02-24] MEDS: ATORVASTATIN 40 MG TAB PO SCH (08:03)
[2023-02-24] MEDS: lisinopril 10 MG TAB PO SCH (08:03)
--- NOTE | 2023-02-24 08:21 | Electrocardiogram Report ---
Test Reason : Blood Pressure : / mmHG Vent. Rate : 041 BPM Atrial Rate : 042 BPM P-R Int : 000 ms QRS Dur : 146 ms QT Int : 662 ms P-R-T Axes : 000 -41 169 degrees QTc Int : 546 ms Atrial fibrillation with slow ventricular response Left axis deviation Right bundle branch block T wave abnormality, consider inferolateral ischemia Abnormal ECG When compared with ECG of 23-FEB-2023 05:55, No significant change Confirmed by John Bedoya ([id number]) on 02/24/2023 8:21:17 AM Referred By: REFERRED SELF Confirmed By:John Bedoya
[2023-02-24 08:44] LABS: Estimated Average Glucose 137 mg/dl; Hemoglobin A1C 6.4 % (4.5-5.6)
--- NOTE | 2023-02-24 10:09 | Cardiology Progress Note ---
Date of Service February 24, 2023 Assessment & Plan Admission and Anticipated Discharge Date Admission Date: February 22, 2023 Supervising Physician Co-Signing Physician Notes 77 yo man presenting with syncope * Noted to have significant Bradycardia - HR isn 30's * Atrial rhythm - atrial fibrillation * K+ goal 4.5-5 * Mag levesl low - goal >2 * [place] Pending * TSH - 3 * Patient has had afib x years - chronic persistent Afib * EKG - RBBB, LAD, atrial fibrillation - Ventricular rate 40 BPM * ECHO - 02/2023 - LVEF 55-60%, S/P TAVR + mild perivalvular leak, MR mild, RVSP 60 mmHg * Pt is NPO * Plans for permanent pace maker placement - plans for ventricular lead only Vadim [place] Subjective Events Overnight: None reported Subjective: Afib = ventricular rate in low 30's Review of Systems Review of Systems: All systems reviewed & are unremarkable except as noted in HPI & below Physical Exam Physical Exam: Pt in EP lab Results & Data Vital Signs (Past 12 Hours) Vital Signs Temp Pulse Pulse Resp BP BP Pulse Ox 02/24/23 07:19 36.5 C 35 L 20 182/70 H 98 02/24/23 04:22 36.6 C 34 L 14 184/68 H 95 02/24/23 00:56 33 L 02/23/23 23:30 36.8 C 36 L 16 180/66 H 95 O2 Del Method 02/24/23 07:19 Room Air 02/24/23 04:22 Room Air 02/24/23 00:56 02/23/23 23:30 Room Air Laboratory Results Coagulation 02/23/23 02/23/23 Range/Units 14:23 22:56 APTT 75.4 H* 63.5 H* (21.0-31.0) Seconds CBC 02/24/23 Range/Units 06:01 WBC 6.02 (4.8-10.8) K/ul RBC 4.15 L (4.70-6.10) M/uL Hgb 12.9 L (14.0-18.0) g/dl Hct 38.8 L (42.0-52.0) % Plt Count 175 (130-400) K/uL Neut # (Auto) 3.79 (1.40-6.50) K/uL Lymph # (Auto) 1.46 (1.20-3.40) K/uL Mifflin # (Auto) 0.61 H (0.11-0.59) K/uL Eos # (Auto) 0.10 (0.00-0.50) K/uL Baso # (Auto) 0.05 (0.00-0.20) K/uL Comprehensive Metabolic Panel 02/24/23 Range/Units 06:01 Sodium 137 (136-145) mmol/L Potassium 3.8 (3.5-5.1) mmol/L Chloride 102 (98-107) mmol/L Carbon Dioxide 28 (21-32) mmol/L BUN 26 H (6-23) mg/dl Creatinine 1.31 (0.6-1.4) mg/dl Glucose 132 H (70-99(Fasting)) mg/dl Calcium 8.9 (8.6-10.3) mg/dl Intake and Output 02/23/23 02/24/23 02/24/23 22:59 06:59 14:59 Intake Total 408.967 / 857.284 203.867 / 857.284 Output Total Balance 408.967 / 157.284 203.867 / 157.284 - Intake: IV 168.967 / 617.284 203.867 / 617.284 Heparin Sodium/Dextrose 25,000 168.967 / 617.284 203.867 / 617.284 units In 500 ml @ 1,100 UNITS/ HR 22 mls/hr IV .[id number] [facility] Rx #:[id number] Oral 240 / 240 Output: # Bowel Movements Other: # Unmeasured Voids 1 Medications Administered Current Inpatient Medications Acetaminophen (Acetaminophen 325 Mg Tab) 650 mg PO Q4H PRN PRN Reason: Pain or Fever Stop: 03/24/23 19:23 Atorvastatin Calcium (Atorvastatin 40 Mg Tab) 40 mg PO DAILY [facility] Stop: 03/25/23 08:59 Last Admin: 02/24/23 08:03 Dose: 40 mg Dextrose (Dextrose 50% 50 Ml Syringe) 25 - 50 ml IV UD PRN; Protocol PRN Reason: Hypoglycemia Protocol Stop: 03/24/23 19:23 Glucagon (Glucagon For Inj 1 Mg Vial) 1 mg SQ UD PRN; Protocol PRN Reason: Hypoglycemia Protocol Stop: 03/24/23 19:23 Glucose (Glucose 10 Tab/Tube) 4 - 8 tab PO UD PRN; Protocol PRN Reason: Hypoglycemia Treatment Stop: 03/24/23 19:23 Glucose (Glucose 40% Gel 15 Gm Tube) 15 - 30 gm PO UD PRN; Protocol PRN Reason: Hypoglycemia Protocol Stop: 03/24/23 19:23 Heparin Sodium/Dextrose (Heparin Sodium/Dextrose) 25,000 units in 500 mls @ 0 mls/hr IV .Q0M [facility]; Protocol Stop: 03/24/23 17:14 Last Titration: 02/24/23 04:21 Dose: Infused Insulin Aspart (Insulin Aspart Per Unit Charge) 0 units SC ACHS [facility] Stop: 03/24/23 20:59 Last Admin: 02/24/23 07:37 Dose: Not Given Insulin Glargine (Lantus Per Unit Charge) 10 units SQ HS [facility] Stop: 03/24/23 20:59 Last Admin: 02/23/23 21:30 Dose: Not Given Lisinopril (Lisinopril 10 Mg Tab) [address] [facility] Stop: 03/25/23 12:14 Last Admin: 02/24/23 08:03 Dose: 10 mg Miscellaneous (Carbohydrates For Hypoglycemia ) 15 - 30 gm PO UD PRN PRN Reason: Hypoglycemia Protocol Stop: 03/24/23 19:23 Spironolactone (Spironolactone 25 Mg Tab) [address] [facility] Stop: 03/25/23 12:14 Last Admin: 02/24/23 08:03 Dose: 25 mg
[2023-02-24] MEDS ORDERED: fentaNYL citrate PF 100 MCG/2 ML VIAL ONE (10:12)
[2023-02-24] MEDS ORDERED: MIDAZOLAM HCL 5 MG/ML 1 ML VIAL ONE (10:12)
[2023-02-24] MEDS ORDERED: ceFAZolin 330 MG/ML 1 GM VIAL ONE (10:12)
--- NOTE | 2023-02-24 10:28 | Pre Anesthesia Assessment ---
Date of Service February 24, 2023 Pre Sedation Assessment Vital Signs Temp Pulse Pulse Resp BP BP Pulse Ox 02/24/23 10:13 36 L 18 204/78 H 98 02/24/23 07:19 36.5 C 35 L 20 182/70 H 98 02/24/23 04:22 36.6 C 34 L 14 184/68 H 95 02/24/23 00:56 33 L 02/23/23 23:30 36.8 C 36 L 16 180/66 H 95 02/23/23 19:00 36.8 C 37 L 20 184/69 H 95 02/23/23 17:29 37 L 02/23/23 17:24 36.6 C 35 L 20 181/78 H 95 02/23/23 11:41 36.5 C 39 L 20 165/74 H 97 O2 Del Method 02/24/23 10:13 Room Air 02/24/23 07:19 Room Air 02/24/23 04:22 Room Air 02/24/23 00:56 02/23/23 23:30 Room Air 02/23/23 19:00 Nasal Cannula 02/23/23 17:29 02/23/23 17:24 Room Air 02/23/23 11:41 Room Air Cardiovascular + bradycardic Respiratory + respiratory effort normal Pre-Sedation Airway Assessment Smoking Status: Former smoker Hx Sleep Apnea: No Hx Difficult Intubation: No Short, Thick Neck: No Thyromental Distance: > or= 3.5 Finger Breadths Oral Cavity: + WNL Mallampati Class: III ASA: ASA3 NPO Status Date of Last Intake of Fluids: 02/23/23 Time of Last Intake of Fluids: 16:30 Date of Last Intake of Solid Food: 02/23/23 Time of Last Intake of Solid Foods: 16:30 Procedure Planning Contraindications for Sedation: none Current Medications Reviewed: Yes Notes The planned sedation has been discussed with the patient. Informed Consent was obtained. I have identified the patient, determined the appropriateness of sedation and have assessed the patient immediately prior to the procedure. All medicine(s) and interventions are by my order.
[2023-02-24] MEDS ORDERED: oxyCODONE HCL IR 5 MG TAB (IMMEDIATE RELEASE) PO PRN (12:08)
--- NOTE | 2023-02-24 12:08 | Electrophysiology Report ---
Date of Service February 24, 2023 Electrophysiology Procedure Electrophysiology Procedure Report Procedure performed: Implantation of single-chamber permanent pacemaker with left bundle pacing lead Staff perinatal educator: John Wallace MD Indication: The patient is a 77-year-old gentleman with a history of transaortic valve replacement in November of this year. He is also known to have permanent atrial fibrillation. He recently suffered a syncopal episode was brought to the hospital where he was found to have significant bradycardia and evidence of high-degree heart block. As result he was advised to undergo implantation of a permanent pacemaker for symptomatic nonreversible AV node dysfunction. Procedure in detail: The patient was informed of the risks benefits and alternatives to the intended procedure and he wished to proceed. He was taken to the electrophysiology suite in a fasting state. A preoperative antibiotic had been administered. The patient was monitored electrocardiographically throughout today's procedure and conscious sedation was administered per protocol. The left upper pectoral area is prepped and draped in usual sterile fashion. This area was anesthetized using subcutaneous administration of a xylocaine solution. An incision was made at this site and carried down to the prepectoralis fascia using sharp dissection. Electrocautery was also employed for dissection as well as for hemostasis. A device pocket was fashioned tissues above the pectoralis muscle. Subsequent to this maneuver the left axillary vein was accessed using modified Seldinger technique. A sheath was placed over 1 of the guidewires and used facilitate passage of a balloon tipped pacing catheter for temporary pacing if necessary. This was advanced under fluoroscopic guidance to the right ventricular apex. Adequate pacing threshold was obtained in the device was placed in backup mode. A sheath was placed over the remaining guidewire and used facilitate passage of the guiding catheter for mapping of the interventricular septum. The his bundle was initially mapped in order to identify the target area for lead placement. Interventricular septum was subsequently mapped and a pacing lead advanced into the interventricular septum under fluoroscopic guidance once an appropriate location was identified. Appropriate electrocardiographic characteristics were obtained such as short left ventricular activation time and development of right bundle branch block pattern in lead V1 prior to removal of the guiding catheter. The proximal portion lead was then sutured to prepectoralis fascia using nonabsorbable suture. The device pocket was irrigated with antibiotic solution. The lead was then attached to the device. The device and lead were then placed in the pocket and pocket was closed in 3 layers of absorbable suture. Steri-Strips and sterile dressing were applied. The device was tested noninvasively prior to conclusion the procedure. The patient tolerated procedure well there no immediate complications. Equipment used: New pulse generator: Scientific Programmer Analyst [employer]. Model number: [id number] serial number [id number] Right ventricular lead: Scientific Programmer Analyst [employer]. Model number: 3830 serial number [id number] Measured data: Right ventricular lead: R-waves measured 9.5 mV. Pacing threshold was 0.375 volts at 0.4 milliseconds with a pacing impedance of 988 Ohms (bipolar) Anodal stimulation noted down to pacing output of 3 volts in the bipolar configuration. Left ventricular activation time at the final pacing location: 74 milliseconds Impression: Successful implantation of single- chamber permanent pacemaker with left bundle pacing lead [facility] Electrophysiology codes EP Procedure 1: Electrophysiology: 36492 Bundle of His recording Pacing Procedure 1: Pacin Insert/Replace Pacer V PG Moderate Sedation Codes Moderate Sedation Codes Procedure 1: Sedation/Anesthesia: 97779 Mod Sedation by the same physician;Init15 Min Child Age 5 & Up Procedure 2: Sedation/Anesthesia: 01934 Mod Sedation by the same physician; Ea [id number] Minutes
--- NOTE | 2023-02-24 12:11 | Post Anesthesia Assessment ---
Date of Service February 24, 2023 Post Sedation Assessment Vital Signs Temp Pulse Pulse Resp BP BP Pulse Ox 02/24/23 10:13 36 L 18 204/78 H 98 02/24/23 07:19 36.5 C 35 L 20 182/70 H 98 02/24/23 04:22 36.6 C 34 L 14 184/68 H 95 02/24/23 00:56 33 L 02/23/23 23:30 36.8 C 36 L 16 180/66 H 95 02/23/23 19:00 36.8 C 37 L 20 184/69 H 95 02/23/23 17:29 37 L 02/23/23 17:24 36.6 C 35 L 20 181/78 H 95 O2 Del Method 02/24/23 10:13 Room Air 02/24/23 07:19 Room Air 02/24/23 04:22 Room Air 02/24/23 00:56 02/23/23 23:30 Room Air 02/23/23 19:00 Nasal Cannula 02/23/23 17:29 02/23/23 17:24 Room Air Recovery Score Activity: Moves 4 extremities Respiration: Deep Breath/Cough Circulation: +/-20% PreAnes Value Consciousness: Fully Awake Oxygen Saturation: > 92% On Room Air Discharge Sedation Level of Care: Fast Track Phase II Post Sedation Plan On clinical assessment, the patient appears to have tolerated the sedation without complications. Patient is recovering as anticipated. Patient will continue to be monitored by nursing and may be discharged when sedation discharge criteria are met per below protocol. Upon Completions of procedure up to 15 minutes continue every 5 minute vital signs and the P.A.R. score; then discharge to a Phase I or Fast Track to Phase II per the following guidelines: * Discharge Patient to appropriate Phase II area if PAR is 8 or greater or return to pre- procedure baseline. The post - procedure orders will be as directed. * If PAR score is less than 8 or not return to pre-procedure baseline then patient will follow Phase I monitoring till PAR is reached for Phase II. The Phase I may be done in procedure room or may call to secure a Phase I area. * If naloxone or flumazenil are used for reversal, hold in Phase I for continued monitoring from when last reversal dose was given for a minimum of 60 minutes or longer pending the nurse and/or physician discretion of patient condition before discharge to Phase II. Please call the Sedation Physician to re-evaluate and complete post-note for discharge to Phase II area. Do NOT discharge from procedure sedation or Phase 1 until post- sedation evaluation note is complete by procedure /sedation MD Sedation Discharge Instructions to be given to the patient at discharge to home.
[2023-02-24] MEDS: ACETAMINOPHEN 325 MG TAB PO PRN ×2 (16:43→20:48)
--- NOTE | 2023-02-24 16:57 | Hospitalist Progress Note ---
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 In the ED, found to be markedly bradycardic with rate in the 20s-30s. Pt was found to be hypomag with a Mg of 1.6, which was subsequently replaced. He is on a low- dose beta-armando. Denies any prior syncopal events or bradycardic episodes. Syncopal event like related to bradycardia and/or significant pause. - Admitted to PCU - Consult cardiology - input appreciated. Case discussed with Dr. Rome. Pt may need pacemaker placement during admission if rate does not improve with holding beta-armando, Mg repletion - Hold Eliquis in case procedure needed urgently - will start heparin gtt for now -Appreciate cardiology input and recommendation for permanent pacemaker placement tomorrow -His primary wood milling machine operator Dr. Vasquez was communicated by Dr. Davis -Echo of the heart showed-normal LV systolic function, EF 55 to 60%, gradients at across the aortic valve prosthesis are normal, mild periprosthetic regurgitation, pulm artery systolic pressure is moderately elevated at 63 mmHg. -His heart rate is running around lower 40 without any symptoms at rest -Electrolytes replaced -Has been on heparin and plan to do pacemaker implantation tomorrow -Discussed with the family members -Will have pacemaker placement this morning or afternoon -Likely discharge tomorrow (2) Bradycardia: Plan: As above Will have PPM placement this morning (3) Elevated troponin: Plan: Mildly elevated troponin secondary to a strain Doubt any ACS (4) A-fib: Plan: History of A-fib on Eliquis Having bradycardia with symptoms He is for pacemaker placement likely tomorrow (5) Type 2 diabetes mellitus: Plan: Diabetic diet Insulin sliding scale, BSG ACHS A1c in AM-6.4 (6) Dyslipidemia: Plan: Continue statin (7) Essential hypertension: Plan Code status: Full code DVT Prophylaxis: heparin gtt Admission and Anticipated Discharge Date Admission Date: February 22, 2023 Subjective 02/23/2023 The patient was seen and examined in telemetry unit He does not have any symptoms but presented with syncope and collapse No chest pain or palpitation or shortness of breath at rest Heart rate remains around 40s 02/24/2023 The patient was seen and examined in telemetry unit in presence of the He has been stable and remains asymptomatic throughout the night His heart rate remains low at lower 40s without any symptoms He will have pacemaker placement this morning/afternoon Review of Systems Review of Systems: All systems reviewed and are unremarkable except as noted below Physical Exam Physical Exam: Sitting at the edge of the bed without any acute distress Constitutional: well developed, well nourished and + obese; not ill appearing Eyes: PERRL, conjunctivae normal, anicteric sclerae ENMT: external ear and nose normal, oropharynx normal Neck: trachea midline, no thyromegaly Respiratory: no respiratory distress Auscultation: + diminished lung sounds and + crackles (Minimal crackles at the bases) Cardiovascular: Rate/Rhythm: regular rate, regular rhythm and + bradycardic Heart Sounds: normal S1 and normal S2; no murmur Extremities: + edema (Trace edema bilaterally) Gastrointestinal (Abdomen): Inspection/Auscultation: normal bowel sounds; abdomen not distended Percussion/Palpation: abdomen soft; abdomen nontender Neurologic: normal touch/pain/proprioception and moves all extremities; not confused Psychiatric: A+Ox3, euthymic affect Lymphatic: no cervical or axillary lymphadenopathy Results & Data Results & Data Vital Signs (Past 12 Hours) Vital Signs Temp Pulse Resp BP BP Pulse Ox O2 Del Method 02/24/23 16:00 37 C 59 L 18 179/84 H 94 Room Air 02/24/23 15:30 60 18 178/81 H 95 Room Air 02/24/23 15:00 36.4 C L 59 L 18 178/81 H 94 Room Air 02/24/23 14:30 59 L 18 175/84 H 94 Room Air 02/24/23 14:00 60 18 180/92 H 97 Room Air 02/24/23 13:30 59 L 18 194/93 H Room Air 02/24/23 13:15 36.9 C 60 18 174/82 H 95 Room Air 02/24/23 12:53 60 18 153/74 H 98 Room Air 02/24/23 12:46 36.7 C 60 18 156/75 H 97 Room Air 02/24/23 12:15 60 18 180/84 H 98 Room Air 02/24/23 10:13 36 L 18 204/78 H 98 Room Air 02/24/23 07:19 36.5 C 35 L 20 182/70 H 98 Room Air Laboratory Results Short CBC 02/24/23 Range/Units 06:01 WBC 6.02 (4.8-10.8) K/ul Hgb 12.9 L (14.0-18.0) g/dl Hct 38.8 L (42.0-52.0) % Plt Count 175 (130-400) K/uL BMP 02/24/23 06:01 Sodium 137 Potassium 3.8 Chloride 102 Carbon Dioxide 28 BUN 26 H Creatinine 1.31 Glucose 132 H Calcium 8.9 Medications Administered Current Inpatient Medications Acetaminophen (Acetaminophen 325 Mg Tab) 650 mg PO Q4H PRN PRN Reason: Pain or Fever Stop: 03/24/23 19:23 Last Admin: 02/24/23 16:43 Dose: 650 mg Atorvastatin Calcium (Atorvastatin 40 Mg Tab) 40 mg PO DAILY MARY Stop: 03/25/23 08:59 Last Admin: 02/24/23 08:03 Dose: 40 mg Dextrose (Dextrose 50% 50 Ml Syringe) 25 - 50 ml IV UD PRN; Protocol PRN Reason: Hypoglycemia Protocol Stop: 03/24/23 19:23 Glucagon (Glucagon For Inj 1 Mg Vial) 1 mg SQ UD PRN; Protocol PRN Reason: Hypoglycemia Protocol Stop: 03/24/23 19:23 Glucose (Glucose 10 Tab/Tube) 4 - 8 tab PO UD PRN; Protocol PRN Reason: Hypoglycemia Treatment Stop: 03/24/23 19:23 Glucose (Glucose 40% Gel 15 Gm Tube) 15 - 30 gm PO UD PRN; Protocol PRN Reason: Hypoglycemia Protocol Stop: 03/24/23 19:23 Cefazolin Sodium (Ancef 1000mg) 1,000 mg in 7.5 mls @ 2.5 mls/min IV ONE ONE; Protocol Stop: 02/24/23 19:02 Insulin Aspart (Insulin Aspart Per Unit Charge) 0 units SC ACHS MARY Stop: 03/24/23 20:59 Last Admin: 02/24/23 16:44 Dose: Not Given Insulin Glargine (Lantus Per Unit Charge) 10 units SQ HS MARY Stop: 03/24/23 20:59 Last Admin: 02/23/23 21:30 Dose: Not Given Lisinopril (Lisinopril 10 Mg Tab) 10 mg PO QAM [facility] Stop: 03/25/23 12:14 Last Admin: 02/24/23 08:03 Dose: 10 mg Miscellaneous (Carbohydrates For Hypoglycemia ) 15 - 30 gm PO UD PRN PRN Reason: Hypoglycemia Protocol Stop: 03/24/23 19:23 Oxycodone HCl (Oxycodone Hcl Ir 5 Mg Tab (Immediate Release)) 5 mg PO Q6H PRN PRN Reason: Pain Stop: 03/10/23 12:07 Spironolactone (Spironolactone 25 Mg Tab) [facility] Stop: 03/25/23 12:14 Last Admin: 02/24/23 08:03 Dose: 25 mg (4) A-fib Atrial fibrillation type: persistent (not longstanding) Qualified Code(s): I48.19 - Other persistent atrial fibrillation (5) Type 2 diabetes mellitus Diabetes mellitus registered appraiser insulin use: without registered appraiser use Diabetes mellitus complication status: with neurologic complications Diabetes mellitus complication detail: with unspecified neuropathy Qualified Code(s): E11.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
[2023-02-24] MEDS ORDERED: ceFAZolin 1000MG 1,000 MG/7.5 ML SYR IV ONE (19:00)
[2023-02-24] MEDS: LANTUS PER UNIT CHARGE SQ SCH (20:59)
[2023-02-25] MEDS: ACETAMINOPHEN 325 MG TAB PO PRN ×2 (05:36→09:33)
[2023-02-25 06:45] LABS: Basophils # (auto) 0.03 K/uL (0.00-0.20); Basophils % (auto) 0.6 %; Eosinophils # (auto) 0.08 K/uL (0.00-0.50); Eosinophils % (auto) 1.6 %; Hematocrit (blood only) 41.5 % (42.0-52.0); Hemoglobin 14.2 g/dl (14.0-18.0); Immature Granulocytes # (auto) 0.01 K/uL (0.01-0.20); Immature Granulocytes % (auto) 0.2 %; Lymphocytes # (auto) 0.78 K/uL (1.20-3.40); Lymphocytes % (auto) 15.6 %; Mean Corpuscular Hemoglobin 31.3 pg (25.0-34.0); Mean Corpuscular Hgb Conc 34.2 g/dL (32.0-36.0); Mean Corpuscular Volume 91.4 fL (80.0-100.0); Monocytes # (auto) 0.56 K/uL (0.11-0.59); Monocytes % (auto) 11.2 %; Neutrophils # (auto) 3.55 K/uL (1.40-6.50); Neutrophils % (auto) 70.8 %; Platelet Count 160 K/uL (130-400); RDW Coefficient of Variation 15.1 % (11.5-14.5); RDW Standard Deviation 50.5 fL (36.4-46.3); Red Blood Count 4.54 M/uL (4.70-6.10); White Blood Count 5.01 K/ul (4.8-10.8)
[2023-02-25 06:56] LABS: BUN Creatinine Ratio 22.2 (10-20); Calcium 9.1 mg/dl (8.6-10.3); Est GFR (African American) 77.4 ml/min; Est GFR (Non-African American) 66.8 ml/min; Magnesium 1.7 mg/dl (1.7-2.4); Potassium 3.7 mmol/L (3.5-5.1)
--- NOTE | 2023-02-25 08:04 | XRay Report ---
XR chest 2V PA/lateral CLINICAL HISTORY: EXACT TIME ORDERED Evaluate for pneumothorax and l TECHNIQUE: 2 views of the chest were obtained. Comparison: None available at the time of this dictation. FINDINGS: Interval placement of a pacemaker with the leads in satisfactory position. Cardiomegaly is noted. The aortic arch is calcified. The lungs are clear. No evidence of pleural effusion or pneumothorax. IMPRESSION: Interval placement of a pacemaker with the leads in satisfactory position. No evidence of pneumothora x. ACT 112: Negative or not required by law. Electronically signed by: Sánchez Lal M.D. 02/25/2023 8:03 AM
[2023-02-25] MEDS: INSULIN ASPART PER UNIT CHARGE SC SCH (08:15)
[2023-02-25] MEDS: ATORVASTATIN 40 MG TAB PO SCH (08:16)
[2023-02-25] MEDS: SPIRONOLACTONE 25 MG TAB PO SCH (08:16)
[2023-02-25] MEDS: lisinopril 10 MG TAB PO SCH (08:16)
--- NOTE | 2023-02-25 08:54 | Cardiology Progress Note ---
Date of Service February 25, 2023 Assessment & Plan (1) Bradycardia: Plan He seems to have undergone a successful implantation of a single-chamber permanent pacemaker with left bundle pacing lead. No evident complication. Last him to keep the wound dry and Steri-Strips intact until he follows up in [place]. At least 5 days. He should refrain from lifting left arm above the shoulder behind the neck for 6 weeks. Admission and Anticipated Discharge Date Admission Date: February 22, 2023 Subjective This morning the patient had minimal discomfort at the implant site. He did not sleep well. Minimal ambulation so far. Physical Exam Physical Exam: Evaluation the device implant site revealed some mild ecchymosis and some erythema related to the tape adhesive. No significant drainage, bleeding or hematoma Results & Data Vital Signs (Past 12 Hours) Vital Signs Temp Pulse Pulse Resp BP Pulse Ox O2 Del Method 02/25/23 07:11 36.5 C 59 L 21 178/92 H 95 Room Air 02/25/23 02:33 36.6 C 60 20 186/92 H 97 Room Air 02/25/23 01:15 60 02/24/23 23:15 36.4 C L 60 18 174/81 H 96 Room Air 02/24/23 21:03 60 14 172/81 H Room Air Diagnostic Findings Chest x-ray demonstrated stable lead position without evidence of pneumothorax Device interrogation revealed normal pacing and sensing function of the ventricular lead. I could not discern any anodal capture when testing the lead in a bipolar fashion, but I left it programmed to unipolar until chronic thresho lds can be programmed.
--- NOTE | 2023-02-25 08:57 | Hospitalist Progress Note ---
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 In the ED, found to be markedly bradycardic with rate in the 20s-30s. Pt was found to be hypomag with a Mg of 1.6, which was subsequently replaced. He is on a low- dose beta-armando. Denies any prior syncopal events or bradycardic episodes. Syncopal event like related to bradycardia and/or significant pause. - Admitted to PCU - Consult cardiology - input appreciated. Case discussed with Dr. Rome. Pt may need pacemaker placement during admission if rate does not improve with holding beta-armando, Mg repletion - Hold Eliquis in case procedure needed urgently - will start heparin gtt for now -Appreciate cardiology input and recommendation for permanent pacemaker placement tomorrow -His primary assembly inspector Dr. Vasquez was communicated by Dr. Davis -Echo of the heart showed-normal LV systolic function, EF 55 to 60%, gradients at across the aortic valve prosthesis are normal, mild periprosthetic regurgitation, pulm artery systolic pressure is moderately elevated at 63 mmHg. -His heart rate is running around lower 40 without any symptoms at rest -Electrolytes replaced -Has been on heparin and plan to do pacemaker implantation tomorrow -Discussed with the family members -Will have pacemaker placement this morning or afternoon Status post permanent pacemaker placement Evaluated by assembly inspector this morning Remains stable without any significant EKG showing paced rhythm We discharged home this morning We will continue all of his home medications and start Eliquis from tomorrow (2) Bradycardia: Plan: As above Will have PPM placement this morning Status post PPM placement (3) Elevated troponin: Plan: Mildly elevated troponin secondary to a strain Doubt any ACS (4) A-fib: Plan: History of A-fib on Eliquis Having bradycardia with symptoms He is for pacemaker placement likely tomorrow (5) Type 2 diabetes mellitus: Plan: Diabetic diet Insulin sliding scale, BSG ACHS A1c in AM-6.4 (6) Dyslipidemia: Plan: Continue statin (7) Essential hypertension: Plan Code status: Full code DVT Prophylaxis: heparin gtt Will start Eliquis from tomorrow He already has an appointment with his assembly inspector at home within next 7 days Admission and Anticipated Discharge Date Admission Date: February 22, 2023 Subjective 02/23/2023 The patient was seen and examined in telemetry unit He does not have any symptoms but presented with syncope and collapse No chest pain or palpitation or shortness of breath at rest Heart rate remains around 40s 02/24/2023 The patient was seen and examined in telemetry unit in presence of the He has been stable and remains asymptomatic throughout the night His heart rate remains low at lower 40s without any symptoms He will have pacemaker placement this morning/afternoon 02/25/2023 The patient was seen and examined in telemetry unit in presence of the family members He has been stable for following pacemaker implantation Denies any significant symptoms except minimal discomfort at the implantation site He will be discharged home this morning Review of Systems Review of Systems: All systems reviewed and are unremarkable except as noted below Physical Exam Physical Exam: Sitting at the edge of the bed without any acute distress Constitutional: well developed, well nourished and + obese; not ill appearing Eyes: PERRL, conjunctivae normal, anicteric sclerae ENMT: external ear and nose normal, oropharynx normal Neck: trachea midline, no thyromegaly Respiratory: no respiratory distress Auscultation: + diminished lung sounds and + crackles (Minimal crackles at the bases) Cardiovascular: Rate/Rhythm: regular rate, regular rhythm and + bradycardic Heart Sounds: normal S1 and normal S2; no murmur Extremities: + edema (Trace edema bilaterally) Chest (Breasts): Additional Comments: Pacemaker site remains intact without any bleeding and/or hematoma Gastrointestinal (Abdomen): Inspection/Auscultation: normal bowel sounds; abdomen not distended Percussion/Palpation: abdomen soft; abdomen nontender Neurologic: normal touch/pain/proprioception and moves all extremities; not confused Psychiatric: A+Ox3, euthymic affect Lymphatic: no cervical or axillary lymphadenopathy Results & Data Results & Data Vital Signs (Past 12 Hours) Vital Signs Temp Pulse Pulse Resp BP Pulse Ox O2 Del Method 02/25/23 07:11 36.5 C 59 L 21 178/92 H 95 Room Air 02/25/23 02:33 36.6 C 60 20 186/92 H 97 Room Air 02/25/23 01:15 60 02/24/23 23:15 36.4 C L 60 18 174/81 H 96 Room Air 02/24/23 21:03 60 14 172/81 H Room Air Laboratory Results Short CBC 02/25/23 Range/Units 06:11 WBC 5.01 (4.8-10.8) K/ul Hgb 14.2 (14.0-18.0) g/dl Hct 41.5 L (42.0-52.0) % Plt Count 160 (130-400) K/uL BMP 02/25/23 06:11 Sodium 138 Potassium 3.7 Chloride 105 Carbon Dioxide 24 BUN 24 H Creatinine 1.08 Glucose 128 H Calcium 9.1 Medications Administered Current Inpatient Medications Acetaminophen (Acetaminophen 325 Mg Tab) 650 mg PO Q4H PRN PRN Reason: Pain or Fever Stop: 03/24/23 19:23 Last Admin: 02/25/23 05:36 Dose: 650 mg Atorvastatin Calcium (Atorvastatin 40 Mg Tab) 40 mg PO DAILY [facility] Stop: 03/25/23 08:59 Last Admin: 02/25/23 08:16 Dose: 40 mg Dextrose (Dextrose 50% 50 Ml Syringe) 25 - 50 ml IV UD PRN; Protocol PRN Reason: Hypoglycemia Protocol Stop: 03/24/23 19:23 Glucagon (Glucagon For Inj 1 Mg Vial) 1 mg SQ UD PRN; Protocol PRN Reason: Hypoglycemia Protocol Stop: 03/24/23 19:23 Glucose (Glucose 10 Tab/Tube) 4 - 8 tab PO UD PRN; Protocol PRN Reason: Hypoglycemia Treatment Stop: 03/24/23 19:23 Glucose (Glucose 40% Gel 15 Gm Tube) 15 - 30 gm PO UD PRN; Protocol PRN Reason: Hypoglycemia Protocol Stop: 03/24/23 19:23 Insulin Aspart (Insulin Aspart Per Unit Charge) 0 units SC ACHS MARY Stop: 03/24/23 20:59 Last Admin: 02/25/23 08:15 Dose: Not Given Insulin Glargine (Lantus Per Unit Charge) 10 units SQ HS MARY Stop: 03/24/23 20:59 Last Admin: 02/24/23 20:59 Dose: Not Given Lisinopril (Lisinopril 10 Mg Tab) 10 mg PO QAM MARY Stop: 03/25/23 12:14 Last Admin: 02/25/23 08:16 Dose: 10 mg Miscellaneous (Carbohydrates For Hypoglycemia ) 15 - 30 gm PO UD PRN PRN Reason: Hypoglycemia Protocol Stop: 03/24/23 19:23 Oxycodone HCl (Oxycodone Hcl Ir 5 Mg Tab (Immediate Release)) 5 mg PO Q6H PRN PRN Reason: Pain Stop: 03/10/23 12:07 Spironolactone (Spironolactone 25 Mg Tab) 25 mg PO QAM MARY Stop: 03/25/23 12:14 Last Admin: 02/25/23 08:16 Dose: 25 mg (4) A-fib Atrial fibrillation type: persistent (not longstanding) Qualified Code(s): I48.19 - Other persistent atrial fibrillation (5) Type 2 diabetes mellitus Diabetes mellitus fci insulin use: without fci use Diabetes mellitus complication status: with neurologic complications Diabetes mellitus complication detail: with unspecified neuropathy Qualified Code(s): E11.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
--- NOTE | 2023-02-25 08:59 | Electrocardiogram Report ---
Test Reason : Blood Pressure : / mmHG Vent. Rate : 060 BPM Atrial Rate : 063 BPM P-R Int : 000 ms QRS Dur : 146 ms QT Int : 528 ms P-R-T Axes : 000 129 116 degrees QTc Int : 528 ms Ventricular-paced rhythm Atrial fibrillation Abnormal ECG When compared with ECG of 24-FEB-2023 06:13, Electronic ventricular pacemaker now present Confirmed by John Bedoya ([id number]) on 02/25/2023 8:59:16 AM Referred By: REFERRED SELF Confirmed By:John Bedoya
--- NOTE | 2023-02-25 09:05 | Electrocardiogram Report ---
Test Reason : Blood Pressure : / mmHG Vent. Rate : 060 BPM Atrial Rate : 074 BPM P-R Int : 000 ms QRS Dur : 146 ms QT Int : 516 ms P-R-T Axes : 000 129 138 degrees QTc Int : 516 ms Ventricular-paced rhythm Atrial flutter vs. afib Abnormal ECG When compared with ECG of 24-FEB-2023 18:37, No significant change Confirmed by John Bedoya ([id number]) on 02/25/2023 9:04:49 AM Referred By: REFERRED SELF Confirmed By:John Bedoya
--- NOTE | 2023-02-25 09:06 | Discharge Summary ---
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 Pt is here visiting from [place], [place] for the football game. This morning he felt at baseline when he woke up, took his home meds as usual but didn't eat breakfast. On his way into the game, he became mildly short of breath with the exertion, which is unusual for him. While at the game, he became light-headed and slumped over onto the person in front of him. Family states that he was out for at least a full minute, appear pale and cyanotic but maintained pulse and blood pressure. He spontaneously regainied consciousness and was taken to the first-aid station then transported to the ED. In the ED, he was found to be bradycardic - rate in the ED has ranged from the 20s-30s. At baseline, pt takes metoprolol 12.5 mg daily, but this is not new for him - denies prior history of bradycardia or similar syncopal episodes. Reports his diabetes is usually well-controlled on the Metformin but he does not check his blood sugars at home. His routine A1cs have all been acceptable per pt. Denies chest pain, palpitations, N/V. Prior history of issues with peripheral edema but this has improved. Admission Exam Per Admitting Provider Physical Exam: General: awake, alert, NAD Eyes: no scleral icterus Mouth: moist mucus membranes Neck: trachea midline Heart: bradycardic, irregularly irregular, no murmurs Lungs: CTA bilaterally Abdomen: soft, +BS Extremities: chronic stasis changes bilateral LE, no edema Neuro: moves all extremities, O x 3, no dysarthria or facial droop Principal Diagnosis Syncope secondary to bradycardia, status post permanent pacemaker placement, atrial fibrillation Discharge Exam Sitting at the edge of the bed without any acute distress Constitutional well developed, well nourished and + obese; not ill appearing Eyes PERRL, conjunctivae normal, anicteric sclerae ENMT external ear and nose normal, oropharynx normal Neck trachea midline, no thyromegaly Respiratory no respiratory distress Auscultation: + diminished lung sounds and + crackles (Minimal crackles at the bases) Cardiovascular Rate/Rhythm: regular rate, regular rhythm and + bradycardic Heart Sounds: normal S1 and normal S2; no murmur Extremities: + edema (Trace edema bilaterally) Gastrointestinal (Abdomen) Inspection/Auscultation: normal bowel sounds; abdomen not distended Percussion/Palpation: abdomen soft; abdomen nontender Neurologic normal touch/pain/proprioception and moves all extremities; not confused Psychiatric A+Ox3, euthymic affect Lymphatic no cervical or axillary lymphadenopathy Discharge Data Allergies Allergy/AdvReac Type Severity Reaction Status Date / Time ciprofloxacin [From Cipro] AdvReac Severe GI Verified 02/22/23 16:14 UPSET/SEVERE DIARRHEA Consultations 02/22/23 16:22 ED Decision to Admit Stat 02/22/23 19:24 Consult Cardiology Routine Procedures Performed Operation Date: 02/24/23 10:00 Actual Procedures p Pacer with Ventricular Lead - John Wallace MD s Insert/Replace Temorary Pacemaker - John Wallace MD s Bundle of his Recording - John Wallace MD Ordered Studies 02/22/23 16:24 CT head/brain wo con Stat 02/24/23 07:30 EP Lab Images for PACS ONCE Hospital Course (1) Syncope and collapse: 77 y/o male with 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 In the ED, found to be markedly bradycardic with rate in the 20s-30s. Pt was found to be hypomag with a Mg of 1.6, which was subsequently replaced. He is on a low- dose beta-armando. Denies any prior syncopal events or bradycardic episodes. Syncopal event like related to bradycardia and/or significant pause. - Admitted to PCU - Consult cardiology - input appreciated. Case discussed with Dr. Rome. Pt may need pacemaker placement during admission if rate does not improve with holding beta-armando, Mg repletion - Hold Eliquis in case procedure needed urgently - will start heparin gtt for now -Appreciate cardiology input and recommendation for permanent pacemaker placement tomorrow -His primary blind slat stapling machine operator Dr. Vasquez was communicated by Dr. Davis -Echo of the heart showed-normal LV systolic function, EF 55 to 60%, gradients at across the aortic valve prosthesis are normal, mild periprosthetic regurgitation, pulm artery systolic pressure is moderately elevated at 63 mmHg. -His heart rate is running around lower 40 without any symptoms at rest -Electrolytes replaced -Has been on heparin and plan to do pacemaker implantation tomorrow -Discussed with the family members -Will have pacemaker placement this morning or afternoon Status post permanent pacemaker placement Evaluated by blind slat stapling machine operator this morning Remains stable without any significant EKG showing paced rhythm We discharged home this morning We will continue all of his home medications and start Eliquis from tomorrow (2) Bradycardia: As above Will have PPM placement this morning Status post PPM placement (3) Elevated troponin: Mildly elevated troponin secondary to a strain Doubt any ACS (4) A-fib: History of A-fib on Eliquis Having bradycardia with symptoms He is for pacemaker placement likely tomorrow (5) Type 2 diabetes mellitus: Diabetic diet Insulin sliding scale, BSG ACHS A1c in AM-6.4 (6) Dyslipidemia: Continue statin (7) Essential hypertension: Plan Code status: Full code DVT Prophylaxis: heparin gtt Will start Eliquis from tomorrow He already has an appointment with his blind slat stapling machine operator at home within next 7 days Total Time Total Time Spent Total Time Spent (In Minutes): 35 minutes Discharge Plan Discharge Items Patient Disposition: Home - Self-Care Reason For Visit: SYMPTOMATIC BRADYCARDIA Discharge Diagnosis: Syncope secondary to bradycardia, status post permanent pacemaker placement, atrial fibrillation Condition on Discharge: Good Activity: Per Instructions section Activity Comment: No lifting left arm above shoulder or behind neck for 6 weeks Lifting: No more than 10 pounds Lifting Comment: No more than 10# with left arm Bathing: Keep incision dry Bathing Comment: Keep wound dry and steri-strip intact until f/u (at least 5 days) Non-emergency contact: Primary Care Provider Call non-emergency contact if: you have any medication questions and your symptoms worsen Follow-up/Referrals: Michael Dinero MD [Primary Care Provider] - (Please make an appointment with your PCP within 7 days) Diet: Carb Consistent or DM2 and Heart Healthy Addtl Attending Provider Instructions: Please take precautions to avoid fall You can start all of her medications as before except Eliquis which should be started from tomorrow as mentioned below Please keep appointments with the healthcare providers May remove gauze dressing tonight/tomorrow Do not resume eliquis until tomorrow morning (02/26/2023) Pending Studies at Discharge: No Stand-Alone Forms: My [facility], Smoking Cessation Medications and DC Order Prescriptions: Continued amoxicillin 500 mg Capsule 2,000 mg PO DIRECTED PRN (Reason: PRIOR TO DENTAL PROCEDURES) atorvastatin 40 mg tablet 40 mg PO DAILY metformin 500 mg tablet 1,000 mg PO BIDM ascorbic acid (vitamin C) [Vitamin C] 1,000 mg Tablet 1 g PO DAILY chlorthalidone 25 mg tablet 12.5 mg PO DAILY acetaminophen [Tylenol Extra Strength] 500 mg Tablet 1,000 mg PO DIRECTED PRN (Reason: Pain) spironolactone 25 mg tablet 25 mg PO QAM amlodipine-benazepril 5-20 mg capsule 1 cap PO DAILY metoprolol succinate 25 mg tablet extended release 24 hr 12.5 mg PO DAILY [id number]-[id number]-fxci 333-133-5 mg Tablet 1 tab PO DAILY potassium gluconate 595 mg (99 mg) Tablet 595 mg PO DAILY Metanx 3-35-2 mg Tablet 1 tab PO DAILY Eliquis 5 mg tablet 5 mg PO BID Probiotic 5 billion cell Capsule, Sprinkle 1 cap PO DAILY Discharge Orders: Discharge Order (Routine); Ordered 02/25/23 Ordered By: Yoselyn Mckinney/Other Patient Handouts: Managing Type 2 Diabetes Admission Data Admit Date/Time: 02/22/23 16:26 Attending Provider: Yoselyn Posada Admit Provider: Rachel Martell Primary Care Provider: Michael Dinero Other Providers: Rachel Martell; Chriss Rome
--- NOTE | 2023-02-25 09:28 | Cardiology Progress Note ---
Date of Service February 25, 2023 Assessment & Plan Admission and Anticipated Discharge Date Admission Date: February 22, 2023 Supervising Physician Co-Signing Physician Notes 77 yo man presenting with syncope * Noted to have significant Bradycardia - HR isn 30's * Atrial rhythm - atrial fibrillation * K+ goal 4.5-5 * Mag levesl low - goal >2 * Lyme Titers Pending * TSH - 3 * Patient has had afib x years - chronic persistent Afib * EKG - RBBB, LAD, atrial fibrillation - Ventricular rate 40 BPM * ECHO - 02/2023 - LVEF 55-60%, S/P TAVR + mild perivalvular leak, MR mild, RVSP 60 mmHg * CXR - RV apical lead - no PTX * Permanent pacemaker placed - [employer] [place] * Plans to restart DOAC on 02/26/2023 * Consider increasing IVIS inhibitor dose - Lisinopril increase to 20 mg po per day * Plans for patient to follow up with Primary Registered Nurse [facility] Transplant in [place] Vadim [place] Subjective Events overnight: None reported Subjective: No complaints Review of Systems Review of Systems: All systems reviewed & are unremarkable except as noted in HPI & below Physical Exam Physical Exam: Overweight No elevation in JVP Left upper chest pacer pocket - clean + dressed - no swelling S1S2 = soft 2/6 systolic murmur Paradoxical S2 split CTA B No C/C/E Warm and perfused Results & Data Vital Signs (Past 12 Hours) Vital Signs Temp Pulse Pulse Resp BP Pulse Ox O2 Del Method 02/25/23 07:11 36.5 C 59 L 21 178/92 H 95 Room Air 02/25/23 02:33 36.6 C 60 20 186/92 H 97 Room Air 02/25/23 01:15 60 02/24/23 23:15 36.4 C L 60 18 174/81 H 96 Room Air Laboratory Results CBC 02/25/23 Range/Units 06:11 WBC 5.01 (4.8-10.8) K/ul RBC 4.54 L (4.70-6.10) M/uL Hgb 14.2 (14.0-18.0) g/dl Hct 41.5 L (42.0-52.0) % Plt Count 160 (130-400) K/uL Neut # (Auto) 3.55 (1.40-6.50) K/uL Lymph # (Auto) 0.78 L (1.20-3.40) K/uL [place] # (Auto) 0.56 (0.11-0.59) K/uL Eos # (Auto) 0.08 (0.00-0.50) K/uL Baso # (Auto) 0.03 (0.00-0.20) K/uL Comprehensive Metabolic Panel 02/25/23 Range/Units 06:11 Sodium 138 (136-145) mmol/L Potassium 3.7 (3.5-5.1) mmol/L Chloride 105 (98-107) mmol/L Carbon Dioxide 24 (21-32) mmol/L BUN 24 H (6-23) mg/dl Creatinine 1.08 (0.6-1.4) mg/dl Glucose 128 H (70-99(Fasting)) mg/dl Calcium 9.1 (8.6-10.3) mg/dl Intake and Output 02/24/23 02/25/23 02/25/23 22:59 06:59 14:59 Intake Total 540 / 540 Balance 540 / 539 Intake: Oral 540 / 540 Other: Other Intake Source patient took sips # Unmeasured Voids 2 1 Weight 88 kg Weight Measurement [facility] Medications Administered Current Inpatient Medications Acetaminophen (Acetaminophen 325 Mg Tab) 650 mg PO Q4H PRN PRN Reason: Pain or Fever Stop: 03/24/23 19:23 Last Admin: 02/25/23 05:36 Dose: 650 mg Atorvastatin Calcium (Atorvastatin 40 Mg Tab) 40 mg PO DAILY [facility] Stop: 03/25/23 08:59 Last Admin: 02/25/23 08:16 Dose: 40 mg Dextrose (Dextrose 50% 50 Ml Syringe) 25 - 50 ml IV UD PRN; Protocol PRN Reason: Hypoglycemia Protocol Stop: 03/24/23 19:23 Glucagon (Glucagon For Inj 1 Mg Vial) 1 mg SQ UD PRN; Protocol PRN Reason: Hypoglycemia Protocol Stop: 03/24/23 19:23 Glucose (Glucose 10 Tab/Tube) 4 - 8 tab PO UD PRN; Protocol PRN Reason: Hypoglycemia Treatment Stop: 03/24/23 19:23 Glucose (Glucose 40% Gel 15 Gm Tube) 15 - 30 gm PO UD PRN; Protocol PRN Reason: Hypoglycemia Protocol Stop: 03/24/23 19:23 Insulin Aspart (Insulin Aspart Per Unit Charge) 0 units SC ACHS [facility] Stop: 03/24/23 20:59 Last Admin: 02/25/23 08:15 Dose: Not Given Insulin Glargine (Lantus Per Unit Charge) 10 units SQ HS [facility] Stop: 03/24/23 20:59 Last Admin: 02/24/23 20:59 Dose: Not Given Lisinopril (Lisinopril 10 Mg Tab) 10 mg PO QAM [facility] Stop: 03/25/23 12:14 Last Admin: 02/25/23 08:16 Dose: 10 mg Miscellaneous (Carbohydrates For Hypoglycemia ) 15 - 30 gm PO UD PRN PRN Reason: Hypoglycemia Protocol Stop: 03/24/23 19:23 Oxycodone HCl (Oxycodone Hcl Ir 5 Mg Tab (Immediate Release)) 5 mg PO Q6H PRN PRN Reason: Pain Stop: 03/10/23 12:07 Spironolactone (Spironolactone 25 Mg Tab) 25 mg PO QAM [facility] Stop: 03/25/23 12:14 Last Admin: 02/25/23 08:16 Dose: 25 mg
--- NOTE | 2023-02-26 13:18 | Discharge Summary ---
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 Pt is here visiting from [place], [place] for the football game. This morning he felt at baseline when he woke up, took his home meds as usual but didn't eat breakfast. On his way into the game, he became mildly short of breath with the exertion, which is unusual for him. While at the game, he became light-headed and slumped over onto the person in front of him. Family states that he was out for at least a full minute, appear pale and cyanotic but maintained pulse and blood pressure. He spontaneously regainied consciousness and was taken to the first-aid station then transported to the ED. In the ED, he was found to be bradycardic - rate in the ED has ranged from the 20s-30s. At baseline, pt takes metoprolol 12.5 mg daily, but this is not new for him - denies prior history of bradycardia or similar syncopal episodes. Reports his diabetes is usually well-controlled on the Metformin but he does not check his blood sugars at home. His routine A1cs have all been acceptable per pt. Denies chest pain, palpitations, N/V. Prior history of issues with peripheral edema but this has improved. Admission Exam Per Admitting Provider Physical Exam: General: awake, alert, NAD Eyes: no scleral icterus Mouth: moist mucus membranes Neck: trachea midline Heart: bradycardic, irregularly irregular, no murmurs Lungs: CTA bilaterally Abdomen: soft, +BS Extremities: chronic stasis changes bilateral LE, no edema Neuro: moves all extremities, O x 3, no dysarthria or facial droop Principal Diagnosis Syncope secondary to bradycardia, status post permanent pacemaker placement, atrial fibrillation Discharge Exam Sitting at the edge of the bed without any acute distress Constitutional well developed, well nourished and + obese; not ill appearing Eyes PERRL, conjunctivae normal, anicteric sclerae ENMT external ear and nose normal, oropharynx normal Neck trachea midline, no thyromegaly Respiratory no respiratory distress Auscultation: + diminished lung sounds and + crackles (Minimal crackles at the bases) Cardiovascular Rate/Rhythm: regular rate, regular rhythm and + bradycardic Heart Sounds: normal S1 and normal S2; no murmur Extremities: + edema (Trace edema bilaterally) Gastrointestinal (Abdomen) Inspection/Auscultation: normal bowel sounds; abdomen not distended Percussion/Palpation: abdomen soft; abdomen nontender Neurologic normal touch/pain/proprioception and moves all extremities; not confused Psychiatric A+Ox3, euthymic affect Lymphatic no cervical or axillary lymphadenopathy Discharge Data Allergies Allergy/AdvReac Type Severity Reaction Status Date / Time ciprofloxacin [From Cipro] AdvReac Severe GI Verified 02/22/23 16:14 UPSET/SEVERE DIARRHEA Consultations 02/22/23 16:22 ED Decision to Admit Stat 02/22/23 19:24 Consult Cardiology Routine Procedures Performed Operation Date: 02/24/23 10:00 Actual Procedures p Pacer with Ventricular Lead - John Wallace MD s Insert/Replace Temorary Pacemaker - John Wallace MD s Bundle of his Recording - John Wallace MD Ordered Studies 02/22/23 16:24 CT head/brain wo con Stat 02/24/23 07:30 EP Lab Images for PACS ONCE Hospital Course (1) Syncope and collapse: 77 y/o male with 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 In the ED, found to be markedly bradycardic with rate in the 20s-30s. Pt was found to be hypomag with a Mg of 1.6, which was subsequently replaced. He is on a low- dose beta-armando. Denies any prior syncopal events or bradycardic episodes. Syncopal event like related to bradycardia and/or significant pause. - Admitted to PCU - Consult cardiology - input appreciated. Case discussed with Dr. Rome. Pt may need pacemaker placement during admission if rate does not improve with holding beta-armando, Mg repletion - Hold Eliquis in case procedure needed urgently - will start heparin gtt for now -Appreciate cardiology input and recommendation for permanent pacemaker placement tomorrow -His primary instructional paraprofessional Dr. Vasquez was communicated by Dr. Davis -Echo of the heart showed-normal LV systolic function, EF 55 to 60%, gradients at across the aortic valve prosthesis are normal, mild periprosthetic regurgitation, pulm artery systolic pressure is moderately elevated at 63 mmHg. -His heart rate is running around lower 40 without any symptoms at rest -Electrolytes replaced -Has been on heparin and plan to do pacemaker implantation tomorrow -Discussed with the family members -Will have pacemaker placement this morning or afternoon Status post permanent pacemaker placement Evaluated by instructional paraprofessional this morning Remains stable without any significant EKG showing paced rhythm We discharged home this morning We will continue all of his home medications and start Eliquis from tomorrow (2) Bradycardia: As above Will have PPM placement this morning Status post PPM placement (3) Elevated troponin: Mildly elevated troponin secondary to a strain Doubt any ACS (4) A-fib: History of A-fib on Eliquis Having bradycardia with symptoms He is for pacemaker placement likely tomorrow (5) Type 2 diabetes mellitus: Diabetic diet Insulin sliding scale, BSG ACHS A1c in AM-6.4 (6) Dyslipidemia: Continue statin (7) Essential hypertension: Plan Code status: Full code DVT Prophylaxis: heparin gtt Will start Eliquis from tomorrow He already has an appointment with his instructional paraprofessional at home within next 7 days Total Time Total Time Spent Total Time Spent (In Minutes): 35 minutes Discharge Plan Discharge Items Patient Disposition: Home - Self-Care Reason For Visit: SYMPTOMATIC BRADYCARDIA Discharge Diagnosis: Syncope secondary to bradycardia, status post permanent pacemaker placement, atrial fibrillation Condition on Discharge: Good Activity: Per Instructions section Activity Comment: No lifting left arm above shoulder or behind neck for 6 weeks Lifting: No more than 10 pounds Lifting Comment: No more than 10# with left arm Bathing: Keep incision dry Bathing Comment: Keep wound dry and steri-strip intact until f/u (at least 5 days) Non-emergency contact: Primary Care Provider Call non-emergency contact if: you have any medication questions and your symptoms worsen Follow-up/Referrals: Michael Dinero MD [Primary Care Provider] - (Please make an appointment with your PCP within 7 days) Diet: Carb Consistent or DM2 and Heart Healthy Addtl Attending Provider Instructions: Please take precautions to avoid fall You can start all of her medications as before except Eliquis which should be started from tomorrow as mentioned below Please keep appointments with the healthcare providers May remove gauze dressing tonight/tomorrow Do not resume eliquis until tomorrow morning (02/26/2023) Pending Studies at Discharge: No Stand-Alone Forms: My [facility], Smoking Cessation Medications and DC Order Prescriptions: Continued amoxicillin 500 mg Capsule 2,000 mg PO DIRECTED PRN (Reason: PRIOR TO DENTAL PROCEDURES) atorvastatin 40 mg tablet 40 mg PO DAILY metformin 500 mg tablet 1,000 mg PO BIDM ascorbic acid (vitamin C) [Vitamin C] 1,000 mg Tablet 1 g PO DAILY chlorthalidone 25 mg tablet 12.5 mg PO DAILY acetaminophen [Tylenol Extra Strength] 500 mg Tablet 1,000 mg PO DIRECTED PRN (Reason: Pain) spironolactone 25 mg tablet 25 mg PO QAM amlodipine-benazepril 5-20 mg capsule 1 cap PO DAILY metoprolol succinate 25 mg tablet extended release 24 hr 12.5 mg PO DAILY mfmylzl-fujkfutqx-awhd 333-133-5 mg Tablet 1 tab PO DAILY potassium gluconate 595 mg (99 mg) Tablet 595 mg PO DAILY mecobal-levomefolat Ca-B6 phos 3-35-2 mg Tablet 1 tab PO DAILY Eliquis 5 mg tablet 5 mg PO BID Probiotic 5 billion cell Capsule, Sprinkle 1 cap PO DAILY Discharge Orders: Discharge Order (Routine); Ordered 02/25/23 Ordered By: Yoselyn Mckinney/Other Patient Handouts: Managing Type 2 Diabetes Admission Data Admit Date/Time: 02/22/23 16:26 Attending Provider: Yoselyn Posada Admit Provider: Rachel Martell Primary Care Provider: Michael Dinero Other Providers: Rachel Martell; Chriss Rome Other Interventions: Discharge Summary Assessment (RN) Last Done: 02/25/23 09:27
== END 2023-02-25 09:59 | disposition home or self-care (01) | DRG 244 ==
LOC: ED 13:48 → EDINP 16:26 → SUATTDRO 16:26 → 2S 19:03
DX: E78.5 Hyperlipidemia, unspecified; Z79.84 Long term (current) use of oral hypoglycemic drugs; I48.21 Permanent atrial fibrillation; Z88.1 Allergy status to other antibiotic agents; I45.10 Unspecified right bundle-branch block; R55 Syncope and collapse; Z79.01 Long term (current) use of anticoagulants; E11.40 Type 2 diabetes mellitus with diabetic neuropathy, unspecified; R79.89 Other specified abnormal findings of blood chemistry; I45.5 Other specified heart block; Z95.2 Presence of prosthetic heart valve; Z87.891 Personal history of nicotine dependence; R00.1 Bradycardia, unspecified